=== PATIENT | male | born 1975 | race Caucasian/White ===

== ENCOUNTER 2024-03-23 11:35 | Emergency (ER) | payer OTHER ==
[~2024-03-23] VITALS: Ht 177.8 cm; Wt 2.0 kg
--- NOTE | 2024-03-23 13:18 | ED.PDOC ---
Musculoskeletal HPI Comments 48 year old male presents to the ED with chief complaint of bilateral leg wounds. Patient reports that he has been experiencing worsening bilateral leg wounds with associated drainage, redness, warmth, and pain for the past week along with fever and chills. Patient relays that he had similar symptoms 2-3 years ago, requiring admitted antibiotic treatment. Patient states that he had accidentally bumped both legs into things, causing a wound that got infected. Patient notes that he had his Tetanus updated last year and he had wrapped his wounds to keep them clean. Patient denies any numbness, weakness, bleeding, chest pain, or SOB. Chief Complaint: Wound Check Time Seen by MD: 13:15 Primary Care Provider: NONE Reviewed Notes: Nurses Notes, Medications, Allergies Allergies: Coded Allergies: NO KNOWN ALLERGIES (Unverified , 03/23/24) Information Source: Patient Mode of Arrival: Ambulatory Location: Bilateral Extremity Location: Leg Timing: Weeks Prehospital treatment: None Severity: Moderate Able to Move Extremity: Yes Bear Weight: Fully Pain: Moderate Mechanism: Metal Cut Circumstances: Preceding Wound Onset of Symptoms: Spontaneous Symptoms: Swelling, Pain, Erythema, Warmth DVT Risk Factors: NONE Past Medical History Past Medical History (Other): Cellulitis, Chronic back pain Surgical History: Appendectomy Family History Family History: Reviewed,noncontributory to illness Social History Smoker: Cigarettes Alcohol: Rarely Drugs: Denies Drug Use Lives In: Home Constitutional: denies: chills, diaphoresis, fatigue, fever, malaise, sweats, weakness, others EENTM: denies: blurred vision, double vision, ear bleeding, ear discharge, ear drainage, ear pain, ear ringing, eye pain, eye redness, hearing loss, mouth pain, mouth swelling, nasal discharge, nose bleeding, nose congestion, nose pain, photophobia, tearing, throat pain, throat swelling, voice changes, others Respiratory: denies: cough, hemoptysis, orthopnea, SOB at rest, shortness of breath, SOB with excertion, stridor, wheezing, others Cardiovascular: denies: chest pain, dizzy spells, diaphoresis, Dyspnea on exertion, edema, irregular heart beat, left arm pain, lightheadedness, palpitations, PND, syncope, others Gastrointestinal: denies: abdomen distended, abdominal pain, blood streaked bowels, constipated, diarrhea, dysphagia, difficulty swallowing, hematemesis, melena, nausea, poor appetite, poor fluid intake, rectal bleeding, rectal pain, vomiting, others Genitourinary: denies: burning, dysuria, flank pain, frequency, hematuria, incontinence, penile discharge, penile sore, pain, testicle pain, testicle swelling, urgency, others Neurological: denies: dizziness, fainting, headache, left sided numbness, left sided weakness, numbness, paresthesia, pre-existing deficit, right sided numbness, right sided weakness, seizure, speech problems, tingling, tremors, weakness, others Musculoskeletal: denies: back pain, gout, joint pain, joint swelling, muscle pain, muscle stiffness, neck pain, others Integumetry: reports: wounds (Bilateral shins with redness, swelling, and drai nage); denies: bruises, change in color, change in hair/nails, dryness, laceration, lesions, lumps, rash, others Allergic/Immunocompromised: denies: Difficulty Healing, Frequent Infections, Hives, Itching, others Endocrine: denies: excessive hunger, excessive sweating, excessive thirst, excessive urination, flushing, intolerance to cold, intolerance to heat, unexplained weight gain, unexplained weight loss, others Psychiatric: denies: anxiety, bipolar disorder, depression, hopeless, panic disorder, schizophrenia, sleepless, suicidal, others All Other Systems: Reviewed and Negative Physical Exam General Appearance: Mild Distress, Normal HEENT: Normal ENT Inspection, PERRL/EOMI Neck: Full Range of Motion, Non-Tender, Normal, Normal Inspection Respiratory: Chest Non-Tender, Lungs Clear, No Accessory Muscle Use, No Respiratory Distress, Normal Breath Sounds Cardiovascular: No Edema, No JVD, No Murmur, No Gallop, Normal Peripheral Pu lses, Regular Rate/Rhythm Breast Exam: Deferred Gastrointestinal: No Organomegaly, Non Tender, No Pulsatile Mass, Normal Bowel Sounds, Soft Genitalia: Deferred Pelvic: Deferred Rectal: Deferred Extremities: Inflammation, No calf tenderness, Normal capillary refill, Normal inspection, Normal range of motion, Swelling, Tender, Other (Patient with bilateral cellulitis which is recurrent) Musculoskeletal : Apperance: Normal Neurologic: Alert, 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 Was a procedure done?: No Differential Diagnosis EXT Differential Diagnosis: Cellulitis, Contusion, Septic X-Ray, Labs, Meds, VS Vital Signs Date Time Temp Pulse Resp B/P (MAP) Pulse Ox O2 Delivery O2 Flow Rate FiO2 03/23/24 13:59 20 97 Room Air 03/23/24 13:59 97.9 83 20 139/81 (100) 97 97.9 03/23/24 13:46 88 18 97 Room Air* 0 21 03/23/24 12:06 98.0 88 18 122/83 (96) 96 Lab Test 03/23/24 13:34 Range/Units White Blood Count 7.9 4.4-10.8 10^3/uL Red Blood Count 4.34 L 4.5-5.90 10^6/uL Hemoglobin 15.3 13.5-17.5 g/dL Hematocrit 44.0 41.0-53.0 % Mean Corpuscular Volume 101.4 H 80.0-100.0 fL Mean Corpuscular Hemoglobin 35.2 H 28.0-32.0 pg Mean Corpuscular Hemoglobin Concent 34.7 32.0-36.0 g/dL Red Cell Distribution Width 12.6 11.8-14.3 % Platelet Count 241 140-450 10^3/uL Mean Platelet Volume 8.5 6.9-10.8 fL Neutrophils (%) (Auto) 64.4 37.0-80.0 % Lymphocytes (%) (Auto) 21.1 10.0-50.0 % Monocytes (%) (Auto) 11.0 0.0-12.0 % Eosinophils (%) (Auto) 3.1 0.0-7.0 % Basophils (%) (Auto) 0.4 0.0-2.0 % Neutrophils # (Auto) 5.1 1.6-8.6 10 ^3/uL Lymphocytes # (Auto) 1.7 0.4-5.4 10 ^3/uL Monocytes # (Auto) 0.9 0-1.3 10 ^3/uL Eosinophils # (Auto) 0.2 0-0.8 10 ^3/uL Basophils # (Auto) 0 0-0.2 10 ^3/uL Nucleated Red Blood Cells 0.1 % Sodium Level 141 136-145 mmol/L Potassium Level 4.4 3.5-5.1 mmol/L Chloride Level 105 98-107 mmol/L Carbon Dioxide Level 31 20-31 mmol/L Anion Gap 5 5-15 Blood Urea Nitrogen 21 9-23 mg/dL Creatinine 1.02 0.700-1.30 mg/dL Glomerular Filtration Rate Calc 92 >90 mL/min BUN/Creatinine Ratio 20.6 H 10.0-20.0 Serum Glucose 89 74-106 mg/dL Calcium Level 9.7 8.7-10.4 mg/dL Current Medications Medications (Trade) Dose Ordered Sig/Yaw Route Start Time Stop Time Status Last Admin Sodium Chloride 500 ml @ 500 mls/hr Q1H ONCE IV 03/23/24 13:15 03/23/24 14:14 DC 03/23/24 13:33 Ceftriaxone Sodium 50 ml @ 100 mls/hr ONCE ONCE IV 03/23/24 13:15 03/23/24 13:44 DC 03/23/24 13:33 X-Ray, Labs, Meds, VS Comment Seen in the emergency department patient came in complaining of cellulitis to both legs with the chills and fever Patient had the same history sometimes ago and was admitted for three weeks because of the severity of the infection Patient has chronic back pain and had his appendix removed CBC is normal BNP negative Patient has been hydrated and medicated The wound has been cultured dressing was applied to both legs Patient will be discharged home you will need to be re-evaluated within two three days Time of 1ST Reevaluation: 14:15 Reevaluation 1ST: Unchanged Time of 2ND Reevaluation: 15:03 Reevaluation 2ND: Improved Consultation: PCP Patient Education/Counseling: Diagnosis, Treatment, Prognosis, Need For Follow Up Family Education/Counseling: Diagnosis, Treatment, Prognosis, Need For Follow Up, No Family Present Departure 1 Departure Time of Disposition: 15:05 Impression: Primary Impression: Bilateral cellulitis of lower leg Additional Impression: Chronic back pain Qualified Codes: M54.50 - Low back pain, unspecified; G89.29 - Other chronic pain Disposition: 01 HOME / SELF CARE / HOMELESS Condition: Fair Additional Instructions: Both leg clean and dry with peroxide apply Neosporin twice a day and follow up with your PCP Within 2-3 days you need to have follow up in the emergency department e-Prescriptions Ibuprofen (Ibuprofen) 600 Mg Tab 1 TAB PO TID for 10 Days, #30 TAB Prov: KUMAR CAMARGO MD 03/23/24 Cefdinir (Cefdinir) 300 Mg Cap 1 CAP PO BID for 10 Days, #20 CAP Prov: KUMAR CAMARGO MD 03/23/24 Bacitracin-Polymyxin B (Neosporin [id number] Unit/gm) 1 Oin Oin 1 OIN EX BID for 10 Days, #60 OIN Prov: KUMAR CAMARGO MD 03/23/24 Discharged With: Self Critical Care Note Critical Care Time?: No Stability Stability form required: No Heart Score Heart Score: Heart Score Response (Comments) Value History N/A 0 EKG N/A 0 Age 45-64 1 Risk Factors No known risk factors 0 Troponin N/A 0 Total 1 I personally scribed for KUMAR CAMARGO MD ([email or web address]) on 03/23/24 at 13:18. Electronically submitted by Domenico Hutton ([email or web address]). I personally scribed for KUMAR CAMARGO MD ([email or web address]) on 03/23/24 at 13:19. Electronically submitted by Domenico Hutton ([email or web address]). KUMAR CAMARGO MD Mar 23, 2024 13:18
[2024-03-23] MEDS: cefTRIAXone 1GM/50ML D5W 50 ML IV ONE (13:33)
[2024-03-23] MEDS: SODIUM CHLORIDE 0.9% 500 ML IV ONE (13:33)
[2024-03-23 13:46] VITALS: PULSE 88; RESP 18; O2SAT 97
[2024-03-23] MEDS: NEOMYCIN-BACITRACIN-POLYM 15GM TOP OINT TOP ONE (13:58)
[2024-03-23 14:00] LABS: Basophils # (auto) 0 10 ^3/uL (0-0.2); Hemoglobin 15.3 g/dL (13.5-17.5); Lymphocytes # (auto) 1.7 10 ^3/uL (0.4-5.4); Monocytes # (auto) 0.9 10 ^3/uL (0-1.3); Neutrophils # (auto) 5.1 10 ^3/uL (1.6-8.6); Red Cell Distribution Width 12.6 % (11.8-14.3)
[2024-03-23 14:03] LABS: Basophils % (auto) 0.4 % (0.0-2.0); Eosinophils # (auto) 0.2 10 ^3/uL (0-0.8); Eosinophils % (auto) 3.1 % (0.0-7.0); Lymphocytes % (auto) 21.1 % (10.0-50.0); Mean Corpuscular Hemoglobin 35.2 pg (28.0-32.0); Mean Corpuscular Hgb Conc. 34.7 g/dL (32.0-36.0); Mean Corpuscular Volume 101.4 fL (80.0-100.0); Neutrophils % (auto) 64.4 % (37.0-80.0); Nucleated Red Blood Cells % 0.1 %; Platelet Count (auto) 241 10^3/uL (140-450); Red Blood Cells 4.34 10^6/uL (4.5-5.90); White Blood Cell 7.9 10^3/uL (4.4-10.8)
[2024-03-23 14:04] LABS: Chloride 105 mmol/L (98-107); Potassium 4.4 mmol/L (3.5-5.1); Sodium 141 mmol/L (136-145)
[2024-03-23 14:05] LABS: Anion Gap 5 (5-15); Calcium 9.7 mg/dL (8.7-10.4); Carbon Dioxide 31 mmol/L (20-31)
[2024-03-23 14:10] LABS: BUN/Creatinine Ratio 20.6 (10.0-20.0); Blood Urea Nitrogen 21 mg/dL (9-23); Glucose 89 mg/dL (74-106)
[2024-03-23] MEDS ORDERED: IBUP-1454 PO (15:08)
[2024-03-23] MEDS ORDERED: CEFD300C2 PO (15:08)
[2024-03-23] MEDS ORDERED: BACI1OIN45 EX (15:08)
[2024-03-23 15:16] VITALS: BP 113/78; PULSE 88; RESP 16; TEMP 97.8; O2SAT 97
== END 2024-03-23 15:17 | disposition home or self-care (01) ==
LOC: ER 11:43
DX: L03.116 Cellulitis of left lower limb (principal); L03.115 Cellulitis of right lower limb; G89.29 Other chronic pain; M54.59 Other low back pain; F17.210 Nicotine dependence, cigarettes, uncomplicated; Z90.49 Acquired absence of other specified parts of digestive tract
CPT/HCPCS: 36415; 80048; 85025; 87077; 87186; 87205; 96365; 99284; J0696; J7040

== ENCOUNTER 2024-05-26 19:00 | Inpatient (IN) | payer OTHER ==
[~2024-05-26] VITALS: Ht 177.8 cm; Wt 76.8 kg
[~2024-05-26 19:00] MED LIST: BACI1OIN45 EX; CEFD300C2 PO; IBUP-1454 PO
--- NOTE | 2024-05-26 20:27 | ED.PDOC ---
History of Present Illness(SKN HPI Comments 48 y.o male presents to the ED for an evaluation of bilateral lower leg wounds to the anterior shins. Patient reports wounds have been present for years, has been giving multiple rounds of antibiotics with last dose routine being 2-3 months ago. Patient presents with dry scab wounds and erythema around. Patient complains of pain described as burning sensation, itchiness and SOB today. Patient denies any fever, chills, wound discharge or bleeding. Chief Complaint: Lower Extremity Time Seen by MD: 20:18 Primary Care Provider: NONE History of Present Illness: Nurses Notes, Medications, Allergies Allergies: Coded Allergies: NO KNOWN ALLERGIES (Unverified , 03/23/24) Home Meds Active Scripts Ibuprofen (Ibuprofen) 600 Mg Tab, 1 TAB PO TID for 10 Days, #30 TAB Prov:KUMAR CAMARGO MD 03/23/24 Cefdinir (Cefdinir) 300 Mg Cap, 1 CAP PO BID for 10 Days, #20 CAP Prov:KUMAR CAMARGO MD 03/23/24 Bacitracin-Polymyxin B (Neosporin [id number] Unit/gm) 1 Oin Oin, 1 OIN EX BID for 10 Days, #60 OIN Prov:KUMAR CAMARGO MD 03/23/24 Information Source: Patient Mode of Arrival: Ambulatory Severity: Moderate Timing: Came on: Gradually Duration: Since onset Location: Leg Mechanism: Preceding Wound Developed: Shortness of Breath Object: None Condition of Object: None Wound Type: Other History of: None Associated Signs and Symptoms: Redness, Swelling, Pain Past Medical History PAST MEDICAL HISTORY: Seizures Surgical History: Appendectomy, Denies all surgeries Family History Family History: Reviewed,noncontributory to illness Social History Smoker: Cigarettes Alcohol: Rarely Drugs: Denies Drug Use Lives In: Home Constitutional: denies: chills, diaphoresis, fatigue, fever, malaise, sweats, weakness, others EENTM: denies: blurred vision, double vision, ear bleeding, ear discharge, ear drainage, ear pain, ear ringing, eye pain, eye redness, hearing loss, mouth pain, mouth swelling, nasal discharge, nose bleeding, nose congestion, nose pain, photophobia, tearing, throat pain, throat swelling, voice changes, others Respiratory: reports: shortness of breath; denies: cough, hemoptysis, orthopnea, SOB at rest, SOB with excertion, stridor, wheezing, others Cardiovascular: denies: chest pain, dizzy spells, diaphoresis, Dyspnea on exertion, edema, irregular heart beat, left arm pain, lightheadedness, palpitations, PND, syncope, others Gastrointestinal: denies: abdomen distended, abdominal pain, blood streaked bowels, constipated, diarrhea, dysphagia, difficulty swallowing, hematemesis, melena, nausea, poor appetite, poor fluid intake, rectal bleeding, rectal pain, vomiting, others Genitourinary: denies: burning, dysuria, flank pain, frequency, hematuria, incontinence, penile discharge, penile sore, pain, testicle pain, testicle swelling, urgency, others Neurological: denies: dizziness, fainting, headache, left sided numbness, left sided weakness, numbness, paresthesia, pre-existing deficit, right sided numbness, right sided weakness, seizure, speech problems, tingling, tremors, weakness, others Musculoskeletal: denies: back pain, gout, joint pain, joint swelling, muscle pain, muscle stiffness, neck pain, others Integumetry: reports: wounds (Bilateral lower leg wounds ); denies: bruises, change in color, change in hair/nails, dryness, laceration, lesions, lumps, rash, others Allergic/Immunocompromised: denies: Difficulty Healing, Frequent Infections, Hives, Itching, others Hematologic/Lymphatic: denies: anemia, blood clots, easy bleeding, easy bruising, swollen glands, others Endocrine: denies: excessive hunger, excessive sweating, excessive thirst, excessive urination, flushing, intolerance to cold, intolerance to heat, unexplained weight gain, unexplained weight loss, others Psychiatric: denies: anxiety, bipolar disorder, depression, hopeless, panic disorder, schizophrenia, sleepless, suicidal, others All Other Systems: Reviewed and Negative Physical Exam General Appearance: No Apparent Distress, Normal HEENT: Normal ENT Inspection, Pharynx Normal, TMs Normal Neck: Full Range of Motion, Non-Tender, Normal, Normal Inspection Respiratory: Chest Non-Tender, Lungs Clear, No Accessory Muscle Use, No Respiratory Distress, Normal Breath Sounds Cardiovascular: No Edema, No JVD, No Murmur, No Gallop, Normal Peripheral Pulses, Regular Rate/Rhythm Breast Exam: Deferred Gastrointestinal: No Organomegaly, Non Tender, No Pulsatile Mass, Normal Bowel Sounds, Soft Genitalia: Deferred Pelvic: Deferred Rectal: Deferred Extremities: No calf tenderness, Normal capillary refill, Normal inspection, Normal range of motion, Non-tender, No pedal edema Musculoskeletal : Apperance: Normal Neurologic: Alert, 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 ) Lymphatic: No Adenopathy Was a procedure done? Was a procedure done?: No Differential Diagnosis (INTG) Differential Diagnosis: Cellulitis, Contact Dermatitis, Osteomyelitis X-Ray, Labs, Meds, VS Vital Signs Date Time Temp Pulse Resp B/P (MAP) Pulse Ox O2 Delivery O2 Flow Rate FiO2 05/26/24 21:23 95 20 95 Room Air* 0 21 05/26/24 20:56 98.5 91 20 144/89 (107) 95 98.5 05/26/24 19:20 98.3 107 20 129/85 (100) 96 98.3 Lab Test 05/26/24 20:38 Range/Units White Blood Count 5.1 4.4-10.8 10^3/uL Red Blood Count 4.28 L 4.5-5.90 10^6/uL Hemoglobin 15.2 13.5-17.5 g/dL Hematocrit 42.0 41.0-53.0 % Mean Corpuscular Volume 98.0 80.0-100.0 fL Mean Corpuscular Hemoglobin 35.5 H 28.0-32.0 pg Mean Corpuscular Hemoglobin Concent 36.2 H 32.0-36.0 g/dL Red Cell Distribution Width 12.9 11.8-14.3 % Platelet Count 230 140-450 10^3/uL Mean Platelet Volume 8.0 6.9-10.8 fL Neutrophils (%) (Auto) 47.6 37.0-80.0 % Lymphocytes (%) (Auto) 36.7 10.0-50.0 % Monocytes (%) (Auto) 11.0 0.0-12.0 % Eosinophils (%) (Auto) 3.8 0.0-7.0 % Basophils (%) (Auto) 0.9 0.0-2.0 % Neutrophils # (Auto) 2.4 1.6-8.6 10 ^3/uL Lymphocytes # (Auto) 1.9 0.4-5.4 10 ^3/uL Monocytes # (Auto) 0.6 0-1.3 10 ^3/uL Eosinophils # (Auto) 0.2 0-0.8 10 ^3/uL Basophils # (Auto) 0 0-0.2 10 ^3/uL Nucleated Red Blood Cells 0.0 % Sodium Level 143 136-145 mmol/L Potassium Level 4.1 3.5-5.1 mmol/L Chloride Level 107 98-107 mmol/L Carbon Dioxide Level 31 20-31 mmol/L Anion Gap 5 5-15 Blood Urea Nitrogen 11 9-23 mg/dL Creatinine 1.09 0.700-1.30 mg/dL Glomerular Filtration Rate Calc 85 >90 mL/min BUN/Creatinine Ratio 10.1 10.0-20.0 Serum Glucose 80 74-106 mg/dL Lactic Acid Level 1.6 0.4-2.0 mmol/L Calcium Level 9.7 8.7-10.4 mg/dL Total Bilirubin 1.0 0.2-1.0 mg/dL Aspartate Amino Transferase (AST) 22 13-40 U/L Alanine Aminotransferase (ALT) 15 7-40 U/L Alkaline Phosphatase 89 46-116 U/L Total Protein 7.1 5.7-8.2 g/dL Albumin 4.6 3.2-4.8 g/dL Current Medications Medications (Trade) Dose Ordered Sig/Yaw Route Start Time Stop Time Status Last Admin Cefazolin Sodium 50 ml @ 100 mls/hr ONCE ONCE IV 05/26/24 20:30 05/26/24 20:59 DC 05/26/24 21:17 Ketorolac Tromethamine (Toradol Injection) 30 mg ONCE ONCE IV 05/26/24 20:30 05/26/24 20:31 DC 05/26/24 21:16 X-Ray, Labs, Meds, VS Comment Patient will be admitted for IV antibiotics for nonhealing cellulitis Concerns of possible homelessness and medical noncompliance Patient was given Ancef 1 g Time of 1ST Reevaluation: 20:22 Reevaluation 1ST: Unchanged Patient Education/Counseling: Diagnosis, Treatment, Prognosis Family Education/Counseling: No Family Present Departure 1 Departure Time of Disposition: 22:51 Impression: Primary Impression: Bilateral cellulitis of lower leg Disposition: ADMITTED INPATIENT Condition: Fair Critical Care Note Critical Care Time?: No Stability Stability form required: No I personally scribed for MILENA ARIAS ([email or web address]) on 05/26/24 at 20:27. Electronically submitted by Mony Matute ([facility]). MILENA ARIAS May 26, 2024 20:27
[2024-05-26 20:49] LABS: Basophils # (auto) 0 10 ^3/uL (0-0.2); Basophils % (auto) 0.9 % (0.0-2.0); Eosinophils # (auto) 0.2 10 ^3/uL (0-0.8); Eosinophils % (auto) 3.8 % (0.0-7.0); Hemoglobin 15.2 g/dL (13.5-17.5); Lymphocytes # (auto) 1.9 10 ^3/uL (0.4-5.4); Lymphocytes % (auto) 36.7 % (10.0-50.0); Mean Corpuscular Hemoglobin 35.5 pg (28.0-32.0); Mean Corpuscular Hgb Conc. 36.2 g/dL (32.0-36.0); Monocytes # (auto) 0.6 10 ^3/uL (0-1.3); Neutrophils # (auto) 2.4 10 ^3/uL (1.6-8.6); Neutrophils % (auto) 47.6 % (37.0-80.0); Platelet Count (auto) 230 10^3/uL (140-450); Red Blood Cells 4.28 10^6/uL (4.5-5.90); Red Cell Distribution Width 12.9 % (11.8-14.3); White Blood Cell 5.1 10^3/uL (4.4-10.8)
[2024-05-26 21:09] LABS: Alanine Aminotransferase 15 U/L (7-40); Albumin 4.6 g/dL (3.2-4.8); Alkaline Phosphatase 89 U/L (46-116); Anion Gap 5 (5-15); Aspartate Aminotransferase 22 U/L (13-40); BUN/Creatinine Ratio 10.1 (10.0-20.0); Blood Urea Nitrogen 11 mg/dL (9-23); Calcium 9.7 mg/dL (8.7-10.4); Glucose 80 mg/dL (74-106); Potassium 4.1 mmol/L (3.5-5.1); Sodium 143 mmol/L (136-145); Total Protein 7.1 g/dL (5.7-8.2)
[2024-05-26 21:11] LABS: Carbon Dioxide 31 mmol/L (20-31); Chloride 107 mmol/L (98-107)
[2024-05-26] MEDS: KETOROLAC TROMETH 30 MG/ML 1ML VIAL IV ONE (21:16)
[2024-05-26] MEDS: ceFAZolin 1GM/50ML 50 ML IV ONE (21:17)
[2024-05-26 21:23] VITALS: PULSE 95; RESP 20; O2SAT 95
[2024-05-27] VITALS (9 sets, daily range): BP systolic 120–150; BP diastolic 84–89; PULSE 63–83; RESP 16–19; TEMP 97.4–98.8; O2SAT 94–98
[2024-05-27] MEDS ORDERED: LORazepam 2MG/ML-1ML VIAL IV PRN (02:30)
[2024-05-27] MEDS ORDERED: ONDANSETRON HCL 4 MG/2 ML VIAL IV PRN (02:30)
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
[2024-05-27 03:05] LABS: Basophils # (auto) 0 10 ^3/uL (0-0.2); Eosinophils # (auto) 0.2 10 ^3/uL (0-0.8); Monocytes # (auto) 0.4 10 ^3/uL (0-1.3); White Blood Cell 3.9 10^3/uL (4.4-10.8)
[2024-05-27 03:07] LABS: Basophils % (auto) 0.8 % (0.0-2.0); Hematocrit 40.3 % (41.0-53.0); Hemoglobin 14.4 g/dL (13.5-17.5); Lymphocytes # (auto) 1.9 10 ^3/uL (0.4-5.4); Lymphocytes % (auto) 49.2 % (10.0-50.0); Mean Corpuscular Hemoglobin 35.1 pg (28.0-32.0); Mean Corpuscular Hgb Conc. 35.6 g/dL (32.0-36.0); Mean Corpuscular Volume 98.5 fL (80.0-100.0); Monocytes % (auto) 10.3 % (0.0-12.0); Neutrophils # (auto) 1.4 10 ^3/uL (1.6-8.6); Neutrophils % (auto) 34.7 % (37.0-80.0); Platelet Count (auto) 211 10^3/uL (140-450); Red Blood Cells 4.09 10^6/uL (4.5-5.90); Red Cell Distribution Width 12.9 % (11.8-14.3)
[2024-05-27] MEDS: SODIUM CHLORIDE 0.9% 1,000 ML IV SCH (03:07)
[2024-05-27 03:08] LABS: Anion Gap 6 (5-15); Carbon Dioxide 26 mmol/L (20-31); Sodium 140 mmol/L (136-145)
[2024-05-27 03:09] LABS: Calcium 9.1 mg/dL (8.7-10.4)
[2024-05-27] MEDS: PIPERACILLIN-TAZOB 3.375GM 100 ML IV ONE (03:09)
[2024-05-27 03:14] LABS: Blood Urea Nitrogen 16 mg/dL (9-23); Glucose 105 mg/dL (74-106)
[2024-05-27 03:16] LABS: Phosphorus 3.5 mg/dL (2.4-5.1)
[2024-05-27 03:30] LABS: INR 0.96 (0.9-1.15); Partial Thromboplastin Time 32.5 SEC (24.5-34.5); Prothrombin Time 10.2 sec (9.3-11.8)
[2024-05-27 03:35] LABS: Chloride 108 mmol/L (98-107)
[2024-05-27 03:48] LABS: Triglycerides 52 mg/dL (< 150)
[2024-05-27 03:49] LABS: LDL Cholesterol 66 mg/dL (< 100)
[2024-05-27 03:50] LABS: Cholesterol 118 mg/dL (< 200); HDL Cholesterol 41 mg/dL (40-59)
--- NOTE | 2024-05-27 04:38 | DVH ---
CLINICAL INDICATION: 48 years old, Male; Rule out osteomyelitis. TECHNIQUE: Noncontrast CT of the bilateral lower extremities was performed. Sagittal and coronal refo rmatted images are provided. COMPARISON: None CT Dose: CTDI volume is 9.31 mGy. Dose-length product is 1028.1 mGy*cm FINDINGS: No fracture or dislocation. No cortical destruction or erosions. Soft tissue swelling in th e feet. No obvious fluid collection. IMPRESSION: 1. No CT evidence of osteomyelitis. 2. Soft tissue swelling in the bilateral feet, nonspecific. All CT scans at this medical facility are performed using dose modulation techniques as appropriate t o a performed exam including the following: Automated exposure control was utilized; adjustment of th e MA and/or KV according to patient size; and use of iterative reconstruction technique.
[2024-05-27] MEDS: BUPRENORPHINE -NALOXONE 2-0.5mg SL TAB SL PRN (04:49)
[2024-05-27] MEDS ORDERED: METHADONE HCL 10 MG TAB PO SCH (06:00)
[2024-05-27] MEDS ORDERED: cloNIDine HCL 0.1 MG TAB PO PRN (09:15)
[2024-05-27] MEDS: PIPERACILLIN-TAZOB 3.375GM 100 ML IV SCH (10:07)
[2024-05-27] MEDS: ENOXAPARIN SOD 40 MG/0.4 ML SYRINGE SC SCH (10:08)
--- NOTE | 2024-05-27 11:35 | DVH ---
BILATERAL LOWER EXTREMITY VENOUS DOPPLER CLINICAL HISTORY: Limb swelling Technique: Duplex Doppler evaluation of the deep venous systems of both lower extremities from the co mmon femoral veins to the popliteal veins including color Doppler and spectral/pulsed waveform analys is was performed. COMPARISON: None FINDINGS: The right and left common femoral, superficial femoral, popliteal, posterior tibial veins and trifur cations appear patent with normal augmentation, phasicity, compressibility and color-flow. IMPRESSION: 1. There is no sonographic evidence for DVT in the lower extremities. HS:Y
--- NOTE | 2024-05-27 11:48 | DVH ---
Bilateral Lower Extremity Arterial Duplex Date: 05/27/2024 10:49 AM Clinical History: Rule Out PAD Comparison: None Findings: Duplex Doppler evaluation including color Doppler and spectral/pulsed waveform analysis of the lower extremity arteries was performed. Velocities and waveforms within normal limits REFERENCE VALUES, [facility]) vascular Imaging Lab Criteria: Peak systolic velocity ranges (in cm/sec) are as follows: <150 cm/s - <20 % stenosis 150-200 cm/s - 20-49% stenosis 200-300 cm/s - 50-75% stenosis >300 cm/s -> 75% stenosis IMPRESSION: There is no evidence for peripheral vascular insufficiency in the right lower extremity. There is no evidence for peripheral vascular insufficiency in the left lower extremity. No significant focal stenosis is identified. END IMPRESSION:
[2024-05-27] MEDS: IOHEXOL 350 MG/ML 100ML IJ ONE (12:47)
--- NOTE | 2024-05-27 14:41 | DVH ---
Examination: CT CT ANGIO ABD AORTA W RUN OFF CLINICAL HISTORY: asses vascular patency Comparison: None Technique: Using helical technique, CT data from the abdomen through the toes was obtained during ra pid IV contrast infusion of 100 cc Omni 350. The examination was timed to the arterial system to gene rate a CT angiographic study. 3D images were generated at an independent work station. Dose reduction techniques included automated exposure control. Radiation Dose Information: CT Dose: CTDI volume is 7.4 mGy. Dose-length product is 981.12 mGy*cm Findings: Abdominal aorta: Normal caliber, patent ENRIQUE: Patent Right lower extremity: Common iliac artery: Patent External iliac artery: Patent Internal iliac artery: Patent Common femoral artery: Patent Profunda femoral artery: Patent Superficial femoral artery: Patent Popliteal artery: Patent Anterior tibial artery: Patent Peroneal tibial trunk: Patent Peroneal artery: Patent Posterior tibial artery: Patent Dorsalis pedis artery: Patent Left lower extremity: Common iliac artery: Patent External iliac artery: Patent Internal iliac artery: Patent Common femoral artery: Patent Profunda femoral artery: Patent Superficial femoral artery: Patent Popliteal artery: Patent Anterior tibial artery: Patent Peroneal tibial trunk: Patent Peroneal artery: Patent Posterior tibial artery: Patent Dorsalis pedis artery: Patent Abdomen/Pelvis: Liver: Visualized liver appears unremarkable. Biliary System: Gallbladder: Normal Spleen: Visualized spleen appears unremarkable Pancreas: Visualized pancreas appears unremarkable. Urinary System: Kidneys and Ureters: Visualized kidneys appear unremarkable. Bladder: Normal. GI System: Visualized bowel appears unremarkable. Appendix is not identified. Lymph nodes: Mildly prominent inguinal lymph nodes noted. Peritoneal cavity and surface: No free fluid. No pneumoperitoneum. Soft Tissues: Normal. Reproductive Organs: Normal. Bones: No acute fracture or aggressive osseous lesion. Impression: Vascular: 1. No evidence of vascular disease. Right Lower Extremity: 1. Patent inflow 2. Patent outflow 3. Patent 3 vessel runoff Left Lower Extremity: 1. Patent inflow 2. Patent outflow 3. Patent 3 vessel runoff Abdomen/Pelvis: 1. No acute abdominal pelvic process. HS:Y
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
[2024-05-27 19:04] LABS: Urine Bacteria None Seen /hpf (None Seen)
[2024-05-27 19:24] LABS: Urine Blood Negative /uL (Negative); Urine Clarity Clear (Clear); Urine Color Light-Yellow (Yellow); Urine Protein, UAD Negative (Negative); Urine Specific Gravity 1.049 (1.001-1.035); Urine Squamous Epithelial Cell FEW /hpf (<5); Urine Urobilinogen Normal (Negative); Urine WBC < 1 /HPF (0-3); Urine pH 6.5 (5.0-9.0)
[2024-05-27 19:36] LABS: Cannabinoid Screen, Urine Pos (NEGATIVE)
[2024-05-27 19:37] LABS: Amphetamine Screen, Urine Pos (NEGATIVE); Barbiturate Scree,Urine Neg (NEGATIVE); Benzodiazephine Screen, Urine Neg (NEGATIVE); Cocaine Screen, Urine Neg (NEGATIVE); Opiate Scree,Urine Neg (NEGATIVE); Phencyclidine Screen, Urine Neg (NEGATIVE)
[2024-05-27] MEDS: PANTOPRAZOLE 40 MG/10 ML VIAL INJ IV ONE (21:44)
[2024-05-27] MEDS: KETOROLAC TROMETH 30 MG/ML 1ML VIAL IV ONE (21:45)
[2024-05-27] MEDS: hydrOXYzine HCL 10 MG TAB PO PRN (22:16)
[2024-05-28 06:25] LABS: Basophils # (auto) 0 10 ^3/uL (0-0.2); Eosinophils # (auto) 0.3 10 ^3/uL (0-0.8); Monocytes # (auto) 0.4 10 ^3/uL (0-1.3); White Blood Cell 4.9 10^3/uL (4.4-10.8)
[2024-05-28 06:29] LABS: Basophils % (auto) 0.5 % (0.0-2.0); Eosinophils % (auto) 5.6 % (0.0-7.0); Hematocrit 40.2 % (41.0-53.0); Hemoglobin 14.5 g/dL (13.5-17.5); Lymphocytes # (auto) 2.6 10 ^3/uL (0.4-5.4); Lymphocytes % (auto) 51.8 % (10.0-50.0); Mean Corpuscular Hemoglobin 35.3 pg (28.0-32.0); Mean Corpuscular Volume 98.3 fL (80.0-100.0); Monocytes % (auto) 7.6 % (0.0-12.0); Neutrophils # (auto) 1.7 10 ^3/uL (1.6-8.6); Neutrophils % (auto) 34.5 % (37.0-80.0); Nucleated Red Blood Cells % 0.1 %; Platelet Count (auto) 195 10^3/uL (140-450); Red Blood Cells 4.09 10^6/uL (4.5-5.90); Red Cell Distribution Width 12.9 % (11.8-14.3)
[2024-05-28 06:40] LABS: Anion Gap 6 (5-15); Carbon Dioxide 26 mmol/L (20-31); Potassium 4.2 mmol/L (3.5-5.1); Sodium 140 mmol/L (136-145)
[2024-05-28 06:42] LABS: Calcium 9.2 mg/dL (8.7-10.4)
[2024-05-28 06:46] LABS: Blood Urea Nitrogen 14 mg/dL (9-23); Glucose 93 mg/dL (74-106)
[2024-05-28 06:50] LABS: Chloride 108 mmol/L (98-107)
[2024-05-28 08:15] VITALS: PULSE 65; RESP 16; O2SAT 95
[2024-05-28 09:00] VITALS: BP 90/74; PULSE 65; RESP 16; TEMP 98.7; O2SAT 95
--- NOTE | 2024-05-28 09:13 | DVH ---
XY CHEST TWO VIEWS ROUTINE CLINICAL HISTORY: SOB COMPARISON: None TECHNIQUE: Frontal and lateral view of the chest was obtained FINDINGS: Lines and Tubes: None Lungs: No focal consolidation. Pleura: No effusion. No pneumothorax. Cardiomediastinal contours: Unremarkable Bones: No acute osseous abnormality. IMPRESSION: 1. No acute cardiopulmonary disease.
[2024-05-28 12:41] VITALS: BP 135/94; PULSE 77; RESP 19; TEMP 98.7; O2SAT 97
[2024-05-28] MEDS ORDERED: cloNIDine HCL 0.1 MG TAB PO PRN (14:45)
[2024-05-28] MEDS: cefTRIAXone 1GM/50ML D5W 50 ML IV ONE (16:37)
[2024-05-28 17:00] VITALS: BP 133/95; PULSE 70; RESP 16; TEMP 97.9; O2SAT 98
[2024-05-28] MEDS ORDERED: KETOROLAC TROMETH 30 MG/ML 1ML VIAL IV ONE (17:45)
--- NOTE | 2024-05-28 17:53 | DVHPNRES ---
Progress Note Date Seen: May 28, 2024 Resident Creating Document: GIOVANNY NORTON RESIDENT Has the PT tested + for MRSA If YES, has PT been informed?: No Medical Necessity Reason Pt with a Central, PICC or Fol: No Medical Necessity Reason Patient is a 48-year-old male patient who presented to the ED with chief complaint of nonhealing lower limb bilateral wounds, which have been present for the past five years, but in the past three days have increased in pain, pruritus, and erythema which was exacerbated after traumatic injury, associated also with chills and dyspnea in variable functional class. Denies palpitation, syncope, chest pain, nausea, vomiting, diarrhea, bleeding, sick contacts, recent travel and motor or sensory deficits. Surgical history: Appendectomy Family history: Mother had heart disease and emphysema Social history: Lives in [place] alone in a cabin. Current smoker (approximate 15 pack-year history of smoking) occasional marijuana and alcohol. Abuses fentanyl and methamphetamine. Denies any other drug abuse Allergies: Denies Home medication: Denies PN 05/28/2024 Patient is seen and examined today at the bedside. He has no distress.The swelling is reducing in size and scab is also getting smaller. Complaints of intense burning pruritus around the wound and asking for pain medications. Notes patient UDS came back positive for fentanyl, amphetamine and marijuana. Angio aorta run off showed No acute abdominal pelvic process.Wound culture grew Beta-Hemolytic Group A Streptococcus sensitive to ceftriaxone. Subjective Review of Systems Constitutional: Denies fever no chills no feeling of malaise, mild distress HEENT: Denies headache, ear pain, ear discharges, conjunctivitis, nasal discharge throat pain Cardiovascular: Denies chest pain, palpitation, orthopnea, PND, or pedal edema Respiratory: Denies shortness of breath, cough cough, sputum production, hemoptysis, GI: Denies abdominal pain, nausea, vomiting, diarrhea, hematemesis, hematochezia, : Denies frequency, urgency, hematuria, Endocrine: Denies unintentional weight gain or weight loss, feeling of hot flashes, Mario: Denies easy bruising, bleeding disorders, epistaxis Musculoskeletal/skin: erythema and pruritis lower extremities, scab is decreasing size Psych: No evidence of depression, kem, suicidal ideation Objective vital signs Vital Sign Date Time Temp Pulse Resp B/P (MAP) Pulse Ox O2 Delivery O2 Flow Rate FiO2 05/28/24 17:00 97.9 70 16 133/95 (108) 98 97.9 05/28/24 08:15 Room Air* 0 21 Total Intake and Output 05/27/24 05/27/24 05/28/24 15:00 23:00 07:00 Intake Total 100 ml 870 ml 1100 ml Balance 100 ml 870 ml 1100 ml medications Current Medications Medications Dose Ordered Sig/Yaw Route Start Time Stop Time Status Last Admin Dose Admin Ondansetron HCl 4 mg Q4HP PRN IV 05/27/24 02:30 Enoxaparin Sodium 40 mg DAILY SC 05/27/24 10:00 05/28/24 10:13 40 MG Sodium Chloride 1,000 ml @ 75 mls/hr [id number] IV 05/27/24 02:30 05/28/24 17:34 75 MLS/HR Lorazepam 1 mg Q5MINP PRN IV 05/27/24 02:30 Hydroxyzine HCl 10 mg Q6HP PRN PO 05/27/24 09:15 05/28/24 16:50 10 MG Clonidine HCl 0.1 mg Q6HPRN PRN PO 05/28/24 14:45 Ceftriaxone Sodium 50 ml @ 100 mls/hr DAILY@09 IV 05/29/24 09:00 Examination General Appearance: Alert, Oriented X3, Cooperative, unkempt HEENT: Atraumatic, PERRLA, EOMI, Mucous membrane moist/pink, poor oral hygiene Respiratory: Clear to auscultation, Normal air movement Cardiovascular: Regular rate, Normal S1, Normal S2, No murmurs, no chest wall tenderness Abdominal: NO distention, no tenderness, bowel sounds present, no scars noted MSK/Skin: Skin is dry and warm. Presents dry bilateral lower limb wounds associated with erythema ( Improved). No evidence of discharge at the moment of examination. Neuro: Normal gait, Normal speech, Strength at 5/5 X4 ext, Normal tone, Sensation intact, Cranial nerves 3-12 NL, Reflexes 2+ Psych/Mental Status: Mental status NL, Mood NL laboratory and microbiology Laboratory Tests 05/28/24 05:05 Test 05/28/24 05:05 Range/Units Serum Glucose 93 74-106 mg/dL Microbiology Date/Time Source Procedure Growth Status 05/27/24 03:01 Leg Gram Stain - Final Resulted 05/27/24 03:01 Wound Culture - Preliminary Streptococcus Group A Resulted 05/27/24 02:42 Blood Blood Culture - Preliminary NO GROWTH AFTER 24 HOURS OF INCUBATION. Resulted Problem List/Assessment/Plan Problem List/Assessment/Plan Assessment Cellulitis bilateral --> Chronic nonhealing bilateral lower limb wounds --> Wound culture grew strep group A --> Switch antibiotic to Ceftriaxone daily --> Toradol for pain control --> wound consult on board --> Podiatry on board Osteomyelitis ruled out --> No CT evidence of osteomyelitis. Peripheral artery disease and DVT ruled out --> complained for pain upon long distance walk --> Angio aorta with run off : No acute abdominal pelvic process. History of seizures --> Ativan p.r.n. due to history of seizures Polysubstance abuse (tobacco, marijuana, ethanol, methamphetamine and fentanyl) --> Monitor opiate withdrawal --> Strongly counseled against polysubstance use Care discussed for more than 20 minutes: Full code Case and plan discussed with Dr. Osman Plan discussed with: Patient My Orders My Orders Orders - GIOVANNY NORTON RESIDENT Procedure Category Date Status Time Communication Order ORDERS 05/27/24 Transmitted 18:07 Ceftriaxone 1gm/50ml PHA 05/29/24 In Process D5w (Rocephin) 09:00 * Surgical Consult CONS 05/28/24 Transmitted 16:03 Ketorolac Injection PHA 05/28/24 Verified (Toradol Injection) 17:45 Date of Service: May 28, 2024 Billing Provider: ROC OSMAN MD Common Visit Codes: [id number] INP/OBS CARE(HIGH) GIOVANNY NORTON May 28, 2024 17:53 ROC OSMAN MD Jun 04, 2024 21:10
[2024-05-28 20:00] VITALS: PULSE 81; RESP 17; O2SAT 95
[2024-05-28 21:00] VITALS: BP 129/92; PULSE 81; RESP 17; TEMP 98.5; O2SAT 95
[2024-05-28] MEDS: KETOROLAC TROMETH 30 MG/ML 1ML VIAL IV ONE (22:44)
[2024-05-29 01:00] VITALS: BP 127/79; PULSE 73; RESP 18; TEMP 98.4; O2SAT 96
[2024-05-29 05:00] VITALS: BP 129/80; PULSE 73; RESP 17; TEMP 98.1; O2SAT 96
[2024-05-29 09:00] VITALS: BP 135/96; PULSE 77; RESP 18; TEMP 98.4; O2SAT 96
[2024-05-29] MEDS: cefTRIAXone 1GM/50ML D5W 50 ML IV SCH (09:01)
[2024-05-29 10:08] LABS: Basophils # (auto) 0 10 ^3/uL (0-0.2); Eosinophils # (auto) 0.2 10 ^3/uL (0-0.8); Monocytes # (auto) 0.4 10 ^3/uL (0-1.3); Monocytes % (auto) 5.4 % (0.0-12.0)
[2024-05-29 10:09] LABS: Potassium 4.2 mmol/L (3.5-5.1); Sodium 140 mmol/L (136-145)
[2024-05-29 10:10] LABS: Anion Gap 6 (5-15); Calcium 9.9 mg/dL (8.7-10.4); Carbon Dioxide 27 mmol/L (20-31)
[2024-05-29 10:12] LABS: Basophils % (auto) 0.4 % (0.0-2.0); Eosinophils % (auto) 3.2 % (0.0-7.0); Hematocrit 46.2 % (41.0-53.0); Hemoglobin 16.2 g/dL (13.5-17.5); Lymphocytes # (auto) 1.7 10 ^3/uL (0.4-5.4); Lymphocytes % (auto) 24.3 % (10.0-50.0); Mean Corpuscular Hemoglobin 34.2 pg (28.0-32.0); Mean Corpuscular Volume 97.8 fL (80.0-100.0); Neutrophils # (auto) 4.7 10 ^3/uL (1.6-8.6); Neutrophils % (auto) 66.7 % (37.0-80.0); Nucleated Red Blood Cells % 0.2 %; Platelet Count (auto) 247 10^3/uL (140-450); Red Blood Cells 4.72 10^6/uL (4.5-5.90); Red Cell Distribution Width 12.6 % (11.8-14.3); White Blood Cell 7.1 10^3/uL (4.4-10.8)
[2024-05-29 10:15] LABS: BUN/Creatinine Ratio 20.2 (10.0-20.0); Blood Urea Nitrogen 18 mg/dL (9-23); Glucose 88 mg/dL (74-106)
[2024-05-29 10:42] LABS: Chloride 107 mmol/L (98-107)
--- NOTE | 2024-05-29 11:45 | DVHDSRES ---
Discharge Summary Date of Admission Resident Creating Document: GIOVANNY NORTON May 27, 2024 at 02:20 Date of Discharge: May 29, 2024 Admitting Diagnosis bilateral leg pains Labs/Diagnostic Data: PATIENT: BRITTANY MERCEDES ACCT: [id number] UNIT: [id number] : 1975 LOC: [facility] ROOM / BED: [address] [place] [address] AGE / SEX: 48 / M ADM STATUS: ADM IN SERVICE 0400 ORDERING PHYSICIAN: JEN MILES PROCEDURE(s): CXR2 - CHEST TWO VIEWS ROUTINE REASON: SOB ORDER NUMBER(s): [id number], ACCESSION NUMBER(s): [id number] CHEST TWO VIEWS ROUTINE CLINICAL HISTORY: SOB COMPARISON: None TECHNIQUE: Frontal and lateral view of the chest was obtained FINDINGS: Lines and Tubes: None Lungs: No focal consolidation. Pleura: No effusion. No pneumothorax. Cardiomediastinal contours: Unremarkable Bones: No acute osseous abnormality. IMPRESSION: 1. No acute cardiopulmonary disease. ATED BY: SCOTT BANKS MD DICTATED DATE/TIME: 05/28/24 0911 PATIENT: BRITTANY MERCEDES ACCT: [id number] UNIT: [id number] : 1975 LOC: [facility] ROOM / BED: [address] [place] [address] AGE / SEX: 48 / M ADM STATUS: ADM IN SERVICE 1211 ORDERING PHYSICIAN: GIOVANNY NORTON PROCEDURE(s): CTAAA - CT ANGIO ABD AORTA W RUN OFF REASON: asses vascular patency ORDER NUMBER(s): [id number], ACCESSION NUMBER(s): [id number] Examination: CT CT ANGIO ABD AORTA W RUN OFF CLINICAL HISTORY: asses vascular patency Comparison: None Technique: Using helical technique, CT data from the abdomen through the toes was obtained during rapid IV contrast infusion of 100 cc Omni 350. The examination was timed to the arterial system to generate a CT angiographic study. 3D images were generated at an independent work station. Dose reduction techniques included automated exposure control. Radiation Dose Information: CT Dose: CTDI volume is 7.4 mGy. Dose-length product is 981.12 mGy*cm Findings: Abdominal aorta: Normal caliber, patent ENRIQUE: Patent Right lower extremity: Common iliac artery: Patent External iliac artery: Patent Internal iliac artery: Patent Common femoral artery: Patent Profunda femoral artery: Patent Superficial femoral artery: Patent Popliteal artery: Patent Anterior tibial artery: Patent Peroneal tibial trunk: Patent Peroneal artery: Patent Posterior tibial artery: Patent Dorsalis pedis artery: Patent Left lower extremity: Common iliac artery: Patent External iliac artery: Patent Internal iliac artery: Patent Common femoral artery: Patent Profunda femoral artery: Patent Superficial femoral artery: Patent Popliteal artery: Patent Anterior tibial artery: Patent Peroneal tibial trunk: Patent Peroneal artery: Patent Posterior tibial artery: Patent Dorsalis pedis artery: Patent Abdomen/Pelvis: Liver: Visualized liver appears unremarkable. Biliary System: Gallbladder: Normal Spleen: Visualized spleen appears unremarkable Pancreas: Visualized pancreas appears unremarkable. Urinary System: Kidneys and Ureters: Visualized kidneys appear unremarkable. Bladder: Normal. GI System: Visualized bowel appears unremarkable. Appendix is not identified. Lymph nodes: Mildly prominent inguinal lymph nodes noted. Peritoneal cavity and surface: No free fluid. No pneumoperitoneum. Soft Tissues: Normal. Reproductive Organs: Normal. Bones: No acute fracture or aggressive osseous lesion. Impression: Vascular: 1. No evidence of vascular disease. Right Lower Extremity: 1. Patent inflow 2. Patent outflow 3. Patent 3 vessel runoff Left Lower Extremity: 1. Patent inflow 2. Patent outflow 3. Patent 3 vessel runoff Abdomen/Pelvis: 1. No acute abdominal pelvic process. HS:Y ATED BY: MARTIN BAEZ MD DICTATED DATE/TIME: 05/27/24 1439 Signed PATIENT: BRITTANY MERCEDES ACCT: [id number] UNIT: [id number] : 1975 LOC: [facility] ROOM / BED: [facility] / A AGE / SEX: 48 / M ADM STATUS: ADM IN SERVICE 0354 ORDERING PHYSICIAN: JEN MILES RESIDENT PROCEDURE(s): RLEX - LOWER EXTREMITY NON JOINT RIGH REASON: INFECTION ORDER NUMBER(s): [id number], ACCESSION NUMBER(s): [id number] CLINICAL INDICATION: 48 years old, Male; Rule out osteomyelitis. TECHNIQUE: Noncontrast CT of the bilateral lower extremities was performed. Sagittal and coronal reformatted images are provided. COMPARISON: None CT Dose: CTDI volume is 9.31 mGy. Dose-length product is 1028.1 mGy*cm FINDINGS: No fracture or dislocation. No cortical destruction or erosions. Soft tissue swelling in the feet. No obvious fluid collection. IMPRESSION: 1. No CT evidence of osteomyelitis. 2. Soft tissue swelling in the bilateral feet, nonspecific. All CT scans at this medical facility are performed using dose modulation techniques as appropriate to a performed exam including the following: Automated exposure control was utilized; adjustment of the MA and/or KV according to patient size; and use of iterative reconstruction technique. ATED BY: SCOTT BANKS MD DICTATED DATE/TIME: 05/27/24 0500 PATIENT: BRITTANY MERCEDES ACCT: [id number] UNIT: [id number] : 1975 LOC: [facility] ROOM / BED: [address] [place] [address] AGE / SEX: 48 / M ADM STATUS: ADM IN SERVICE 0231 ORDERING PHYSICIAN: JEN MILES RESIDENT PROCEDURE(s): LLEX - LEFT LOWER EXTREMITY W/O CON REASON: Rule out osteomyelitis ORDER NUMBER(s): [id number], ACCESSION NUMBER(s): [id number] CLINICAL INDICATION: 48 years old, Male; Rule out osteomyelitis. TECHNIQUE: Noncontrast CT of the bilateral lower extremities was performed. Sagittal and coronal reformatted images are provided. COMPARISON: None CT Dose: CTDI volume is 9.31 mGy. Dose-length product is 1028.1 mGy*cm FINDINGS: No fracture or dislocation. No cortical destruction or erosions. Soft tissue swelling in the feet. No obvious fluid collection. IMPRESSION: 1. No CT evidence of osteomyelitis. 2. Soft tissue swelling in the bilateral feet, nonspecific. All CT scans at this medical facility are performed using dose modulation techniques as appropriate to a performed exam including the following: Automated exposure control was utilized; adjustment of the MA and/or KV according to patient size; and use of iterative reconstruction technique. ATED BY: SCOTT BANKS MD DICTATED DATE/TIME: 05/27/24434 Signed PATIENT: BRITTANY MERCEDES ACCT: [id number] UNIT: [id number] : 1975 LOC: [facility] ROOM / BED: [facility] A AGE / SEX: 48 / M ADM STATUS: ADM IN SERVICE 0231 ORDERING PHYSICIAN: JEN MILES PROCEDURE(s): LLEX - LEFT LOWER EXTREMITY W/O CON REASON: Rule out osteomyelitis ORDER NUMBER(s): [id number], ACCESSION NUMBER(s): [id number] CLINICAL INDICATION: 48 years old, Male; Rule out osteomyelitis. TECHNIQUE: Noncontrast CT of the bilateral lower extremities was performed. Sagittal and coronal reformatted images are provided. COMPARISON: None CT Dose: CTDI volume is 9.31 mGy. Dose-length product is 1028.1 mGy*cm FINDINGS: No fracture or dislocation. No cortical destruction or erosions. Soft tissue swelling in the feet. No obvious fluid collection. IMPRESSION: 1. No CT evidence of osteomyelitis. 2. Soft tissue swelling in the bilateral feet, nonspecific. All CT scans at this medical facility are performed using dose modulation techniques as appropriate to a performed exam including the following: Automated exposure control was utilized; adjustment of the MA and/or KV according to patient size; and use of iterative reconstruction technique. ATED BY: SCOTT BANKS MD DICTATED DATE/TIME: 05/27/24434 PATIENT: BRITTANY MERCEDES ACCT: [id number] UNIT: [id number] : 1975 LOC: [facility] ROOM / BED: [facility] / B AGE / SEX: 48 / M ADM STATUS: ADM IN SERVICE 0220 ORDERING PHYSICIAN: JEN MILES PROCEDURE(s): BLDVT - BiLat Lower DVT REASON: Limb swelling ORDER NUMBER(s): [id number], ACCESSION NUMBER(s): [id number] BILATERAL LOWER EXTREMITY VENOUS DOPPLER CLINICAL HISTORY: Limb swelling Technique: Duplex Doppler evaluation of the deep venous systems of both lower extremities from the common femoral veins to the popliteal veins including color Doppler and spectral/pulsed waveform analysis was performed. COMPARISON: None FINDINGS: The right and left common femoral, superficial femoral, popliteal, posterior tibial veins and trifurcations appear patent with normal augmentation, phasicity, compressibility and color-flow. IMPRESSION: 1. There is no sonographic evidence for DVT in the lower extremities. HS:Y ATED BY: TOBIAS ALVARENGA MD DICTATED DATE/TIME: 05/27/24 1133 PATIENT: BRITTANY MERCEDES ACCT: [id number] UNIT: [id number] : 1975 LOC: [facility] ROOM / BED: [address] [place] [address] AGE / SEX: 48 / M ADM STATUS: ADM IN SERVICE 9 ORDERING PHYSICIAN: JEN MILES RESIDENT PROCEDURE(s): BLEAD - BiLat Low Ext Art Duplex REASON: Rule Out PAD ORDER NUMBER(s): [id number], ACCESSION NUMBER(s): [id number] Bilateral Lower Extremity Arterial Duplex Date: 05/27/2024 10:49 AM Clinical History: Rule Out PAD Comparison: None Findings: Duplex Doppler evaluation including color Doppler and spectral/pulsed waveform analysis of the lower extremity arteries was performed. Velocities and waveforms within normal limits REFERENCE VALUES, [facility]) vascular Imaging Lab Criteria: Peak systolic velocity ranges (in cm/sec) are as follows: <150 cm/s - <20 % stenosis 150-200 cm/s - 20-49% stenosis 200-300 cm/s - 50-75% stenosis >300 cm/s -> 75% stenosis IMPRESSION: There is no evidence for peripheral vascular insufficiency in the right lower extremity. There is no evidence for peripheral vascular insufficiency in the left lower extremity. No significant focal stenosis is identified. END IMPRESSION: ATED BY: ROXANA HARVEY MD DICTATED DATE/TIME: 05/27/24 1145 Laboratory Results Test 05/29/24 09:40 05/27/24 18:10 05/27/24 02:42 05/26/24 20:38 White Blood Count 7.1 10^3/uL (4.4-10.8) Red Blood Count 4.72 10^6/uL (4.5-5.90) Hemoglobin 16.2 g/dL (13.5-17.5) Hematocrit 46.2 % (41.0-53.0) Mean Corpuscular Volume 97.8 fL (80.0-100.0) Mean Corpuscular Hemoglobin 34.2 pg (28.0-32.0) Mean Corpuscular Hemoglobin Concent 35.0 g/dL (32.0-36.0) Red Cell Distribution Width 12.6 % (11.8-14.3) Platelet Count 247 10^3/uL (140-450) Mean Platelet Volume 8.0 fL (6.9-10.8) Neutrophils (%) (Auto) 66.7 % (37.0-80.0) Lymphocytes (%) (Auto) 24.3 % (10.0-50.0) Monocytes (%) (Auto) 5.4 % (0.0-12.0) Eosinophils (%) (Auto) 3.2 % (0.0-7.0) Basophils (%) (Auto) 0.4 % (0.0-2.0) Neutrophils # (Auto) 4.7 10 ^3/uL (1.6-8.6) Lymphocytes # (Auto) 1.7 10 ^3/uL (0.4-5.4) Monocytes # (Auto) 0.4 10 ^3/uL (0-1.3) Eosinophils # (Auto) 0.2 10 ^3/uL (0-0.8) Basophils # (Auto) 0 10 ^3/uL (0-0.2) Nucleated Red Blood Cells 0.2 % Sodium Level 140 mmol/L (136-145) Potassium Level 4.2 mmol/L (3.5-5.1) Chloride Level 107 mmol/L (98-107) Carbon Dioxide Level 27 mmol/L (20-31) Anion Gap 6 (5-15) Blood Urea Nitrogen 18 mg/dL (9-23) Creatinine 0.89 mg/dL (0.700-1.30) Glomerular Filtration Rate Calc 107 mL/min (>90) BUN/Creatinine Ratio 20.2 (10.0-20.0) Serum Glucose 88 mg/dL (74-106) Calcium Level 9.9 mg/dL (8.7-10.4) Urine Color Light-yellow (Yellow) Urine Clarity Clear (Clear) Urine pH 6.5 (5.0-9.0) Urine Specific [place] 1.049 (1.001-1.035) Urine Protein Negative (Negative) Urine Ketones Negative (Negative) Urine Blood Negative /uL (Negative) Urine Nitrite Negative (Negative) Urine Bilirubin Negative (Negative) Urine Urobilinogen Normal mg/dL (Negative) Urine Leukocyte Esterase Negative /uL (Negative) Urine RBC 2 /hpf (0 - 3) Urine Microscopic WBC < 1 /HPF (0-3) Urine Squamous Epithelial Cells Few /hpf (<5) Urine Bacteria None seen /hpf (None Seen) Urine Glucose Normal mg/dL (Normal) Urine Opiates Screen Neg (NEGATIVE) Urine Fentanyl Screen Pos (NEGATIVE) Urine Barbiturates Screen Neg (NEGATIVE) Urine Phencyclidine Screen Neg (NEGATIVE) Urine Amphetamines Screen Pos (NEGATIVE) Urine Benzodiazepines Screen Neg (NEGATIVE) Urine Cocaine Screen Neg (NEGATIVE) Urine Cannabinoids Screen Pos (NEGATIVE) Prothrombin Time 10.2 sec (9.3-11.8) Prothrombin Time INR 0.96 (0.9-1.15) Activated Partial Thromboplast Time 32.5 SEC (24.5-34.5) Hemoglobin A1c 5.3 % A1C (<5.7) Phosphorus Level 3.5 mg/dL (2.4-5.1) Magnesium Level 2.0 mg/dL (1.6-2.6) Triglycerides Level 52 mg/dL (< 150) Cholesterol Level 118 mg/dL (< 200) LDL Cholesterol 66 mg/dL (< 100) HDL Cholesterol 41 mg/dL (40-59) Vitamin B12 Level 673 pg/mL (211-911) Vitamin D 25-Hydroxy 38.7 ng/mL (30.0-100) Thyroid Stimulating Hormone (TSH) 2.37 uIU/mL (0.55-4.78) HIV (1&2) Antibody Negative (Negative) Lactic Acid Level 1.6 mmol/L (0.4-2.0) Total Bilirubin 1.0 mg/dL (0.2-1.0) Aspartate Amino Transferase (AST) 22 U/L (13-40) Alanine Aminotransferase (ALT) 15 U/L (7-40) Alkaline Phosphatase 89 U/L (46-116) Total Protein 7.1 g/dL (5.7-8.2) Albumin 4.6 g/dL (3.2-4.8) Other Laboratory Tests 05/29/24 09:40 Brief Hx & Hospital Course: Hospital course Patient is a 48-year-old male patient who presented to the ED with chief complaint of nonhealing lower limb bilateral wounds, which have been present for the past five years, but in the past three days have increased in pain, pruritus, and erythema which was exacerbated after traumatic injury, associated also with chills and dyspnea in variable functional class. Denies palpitation, syncope, chest pain, nausea, vomiting, diarrhea, bleeding, sick contacts, recent travel and motor or sensory deficits. Initial lab work showed elevated d-dimer. There is no sonographic evidence for DVT in the lower extremities. Angio aorta run off did not show any acute abdominal pelvic process. Wound culture taken and patient started on empirical antibiotics. Wound culture grew Beta-Hemolytic Group A Streptococcus sensitive to ceftriaxone. He was also seen by the wound care nurse and the eschar removed and the wound dressed. Other findings noted on this admission was the patient test positive for fentanyl, amphetamine and marijuana Surgical history: Appendectomy Family history: Mother had heart disease and emphysema Social history: Lives in [place] alone in a cabin. Current smoker (approximate 15 pack-year history of smoking) occasional marijuana and alcohol. Abuses fentanyl and methamphetamine. Denies any other drug abuse Allergies: Denies Home medication: Denies This morning before I could see the patient he left AMA. The nursing note, "P atient states they do not trust this RN, healthcare or [employer]. Patient continues to ramble angrily. Patient dressed into street clothing and stated that they are leaving. This RN attempted to reorient and educate patient on plan of care and the risks of leaving against medical advice, patient states they are willing to sign AMA papers and they want to leave. Patient then abruptly left room with all belongings and entered elevator to leave telemetry floor. Security notified of patient departure." Condition at Discharge: Undetermined Final Diagnosis/Problems List Cellulitis bilateral, wound culture grew strep group A History of seizures Polysubstance abuse (tobacco, marijuana, ethanol, methamphetamine and fentanyl) Osteomyelitis ruled out Peripheral artery disease and DVT ruled out Discharge Statement: "Patient was advised to return to the ER or call 911 if any headaches, dizziness, shortness of breath, chest pain, abdominal pain, bleeding, fevers, or worsening of medical condition. Patient was counseled about treatment plan, medications, possible side effects, patientverbalized understanding. All questions were answered to the best of my ability. This discharge took greater then 30 minutes in planning, reviewing documentation, counseling the patient, and discussing with other team members." ASSESSMENT ASSESSMENT Assessment GIOVANNY NORTON RESIDENT May 29, 2024 11:45
[2024-05-29] MEDS ORDERED: CEFD300C2 PO (17:45)
--- NOTE | 2024-05-29 18:05 | DVHDSRES ---
Discharge Summary Date of Admission Resident Creating Document: GIOVANNY NORTON May 27, 2024 at 02:20 Date of Discharge: May 29, 2024 Admitting Diagnosis Bilateral cellulitis Labs/Diagnostic Data: PATIENT: BRITTANY MERCEDES ACCT: [id number] UNIT: [id number] : 1975 LOC: [facility] ROOM / BED: [address] [place] [address] AGE / SEX: 48 / M ADM STATUS: ADM IN SERVICE 0400 ORDERING PHYSICIAN: JEN MILES PROCEDURE(s): CXR2 - CHEST TWO VIEWS ROUTINE REASON: SOB ORDER NUMBER(s): [id number], ACCESSION NUMBER(s): [id number] CHEST TWO VIEWS ROUTINE CLINICAL HISTORY: SOB COMPARISON: None TECHNIQUE: Frontal and lateral view of the chest was obtained FINDINGS: Lines and Tubes: None Lungs: No focal consolidation. Pleura: No effusion. No pneumothorax. Cardiomediastinal contours: Unremarkable Bones: No acute osseous abnormality. IMPRESSION: 1. No acute cardiopulmonary disease. ATED BY: SCOTT BANKS MD DICTATED DATE/TIME: 05/28/24 0911 PATIENT: BRITTANY MERCEDES ACCT: [id number] UNIT: [id number] : 1975 LOC: [facility] ROOM / BED: [address] [place] [address] AGE / SEX: 48 / M ADM STATUS: ADM IN SERVICE 1211 ORDERING PHYSICIAN: GIOVANNY NORTON PROCEDURE(s): CTAAA - CT ANGIO ABD AORTA W RUN OFF REASON: asses vascular patency ORDER NUMBER(s): [id number], ACCESSION NUMBER(s): [id number] Examination: CT CT ANGIO ABD AORTA W RUN OFF CLINICAL HISTORY: asses vascular patency Comparison: None Technique: Using helical technique, CT data from the abdomen through the toes was obtained during rapid IV contrast infusion of 100 cc Omni 350. The examination was timed to the arterial system to generate a CT angiographic study. 3D images were generated at an independent work station. Dose reduction techniques included automated exposure control. Radiation Dose Information: CT Dose: CTDI volume is 7.4 mGy. Dose-length product is 981.12 mGy*cm Findings: Abdominal aorta: Normal caliber, patent ENRIQUE: Patent Right lower extremity: Common iliac artery: Patent External iliac artery: Patent Internal iliac artery: Patent Common femoral artery: Patent Profunda femoral artery: Patent Superficial femoral artery: Patent Popliteal artery: Patent Anterior tibial artery: Patent Peroneal tibial trunk: Patent Peroneal artery: Patent Posterior tibial artery: Patent Dorsalis pedis artery: Patent Left lower extremity: Common iliac artery: Patent External iliac artery: Patent Internal iliac artery: Patent Common femoral artery: Patent Profunda femoral artery: Patent Superficial femoral artery: Patent Popliteal artery: Patent Anterior tibial artery: Patent Peroneal tibial trunk: Patent Peroneal artery: Patent Posterior tibial artery: Patent Dorsalis pedis artery: Patent Abdomen/Pelvis: Liver: Visualized liver appears unremarkable. Biliary System: Gallbladder: Normal Spleen: Visualized spleen appears unremarkable Pancreas: Visualized pancreas appears unremarkable. Urinary System: Kidneys and Ureters: Visualized kidneys appear unremarkable. Bladder: Normal. GI System: Visualized bowel appears unremarkable. Appendix is not identified. Lymph nodes: Mildly prominent inguinal lymph nodes noted. Peritoneal cavity and surface: No free fluid. No pneumoperitoneum. Soft Tissues: Normal. Reproductive Organs: Normal. Bones: No acute fracture or aggressive osseous lesion. Impression: Vascular: 1. No evidence of vascular disease. Right Lower Extremity: 1. Patent inflow 2. Patent outflow 3. Patent 3 vessel runoff Left Lower Extremity: 1. Patent inflow 2. Patent outflow 3. Patent 3 vessel runoff Abdomen/Pelvis: 1. No acute abdominal pelvic process. HS:Y ATED BY: MARTIN BAEZ MD DICTATED DATE/TIME: 05/27/24 1439 PATIENT: BRITTANY MERCEDES ACCT: [id number] UNIT: [id number] : 1975 LOC: [facility] ROOM / BED: [facility] / A AGE / SEX: 48 / M ADM STATUS: ADM IN SERVICE 0354 ORDERING PHYSICIAN: JEN MILES RESIDENT PROCEDURE(s): RLEX - LOWER EXTREMITY NON JOINT RIGH REASON: INFECTION ORDER NUMBER(s): [id number], ACCESSION NUMBER(s): [id number] CLINICAL INDICATION: 48 years old, Male; Rule out osteomyelitis. TECHNIQUE: Noncontrast CT of the bilateral lower extremities was performed. Sagittal and coronal reformatted images are provided. COMPARISON: None CT Dose: CTDI volume is 9.31 mGy. Dose-length product is 1028.1 mGy*cm FINDINGS: No fracture or dislocation. No cortical destruction or erosions. Soft tissue swelling in the feet. No obvious fluid collection. IMPRESSION: 1. No CT evidence of osteomyelitis. 2. Soft tissue swelling in the bilateral feet, nonspecific. All CT scans at this medical facility are performed using dose modulation techniques as appropriate to a performed exam including the following: Automated exposure control was utilized; adjustment of the MA and/or KV according to patient size; and use of iterative reconstruction technique. ATED BY: SCOTT BANKS MD DICTATED DATE/TIME: 05/27/24 0500 PATIENT: BRITTANY MERCEDES ACCT: [id number] UNIT: [id number] : 1975 LOC: [facility] ROOM / BED: [address] [place] [address] AGE / SEX: 48 / M ADM STATUS: ADM IN SERVICE 023 ORDERING PHYSICIAN: JEN MILES RESIDENT PROCEDURE(s): LLEX - LEFT LOWER EXTREMITY W/O CON REASON: Rule out osteomyelitis ORDER NUMBER(s): [id number], ACCESSION NUMBER(s): [id number] CLINICAL INDICATION: 48 years old, Male; Rule out osteomyelitis. TECHNIQUE: Noncontrast CT of the bilateral lower extremities was performed. Sagittal and coronal reformatted images are provided. COMPARISON: None CT Dose: CTDI volume is 9.31 mGy. Dose-length product is 1028.1 mGy*cm FINDINGS: No fracture or dislocation. No cortical destruction or erosions. Soft tissue swelling in the feet. No obvious fluid collection. IMPRESSION: 1. No CT evidence of osteomyelitis. 2. Soft tissue swelling in the bilateral feet, nonspecific. All CT scans at this medical facility are performed using dose modulation techniques as appropriate to a performed exam including the following: Automated exposure control was utilized; adjustment of the MA and/or KV according to patient size; and use of iterative reconstruction technique. ATED BY: SCOTT BANKS MD DICTATED DATE/TIME: 05/27/24 0435 PATIENT: BRITTANY MERCEDES ACCT: [id number] UNIT: [id number] : 1975 LOC: [facility] ROOM / BED: [address] [place] [address] AGE / SEX: 48 / M ADM STATUS: ADM IN SERVICE 9 ORDERING PHYSICIAN: JEN MILES RESIDENT PROCEDURE(s): BLDVT - BiLat Lower DVT REASON: Limb swelling ORDER NUMBER(s): [id number], ACCESSION NUMBER(s): [id number] BILATERAL LOWER EXTREMITY VENOUS DOPPLER CLINICAL HISTORY: Limb swelling Technique: Duplex Doppler evaluation of the deep venous systems of both lower extremities from the common femoral veins to the popliteal veins including color Doppler and spectral/pulsed waveform analysis was performed. COMPARISON: None FINDINGS: The right and left common femoral, superficial femoral, popliteal, posterior tibial veins and trifurcations appear patent with normal augmentation, phasicity, compressibility and color-flow. IMPRESSION: 1. There is no sonographic evidence for DVT in the lower extremities. HS:Y ATED BY: TOBIAS ALVARENGA MD DICTATED DATE/TIME: 05/27/24 1133 PATIENT: BRITTANY MERCEDES ACCT: [id number] UNIT: [id number] : 1975 LOC: [facility] / BED: [address] [place] [address] AGE / SEX: 48 / M ADM STATUS: ADM IN SERVICE 9 ORDERING PHYSICIAN: JEN MILES PROCEDURE(s): BLEAD - BiLat Low Ext Art Duplex REASON: Rule Out PAD ORDER NUMBER(s): [id number], ACCESSION NUMBER(s): [id number] Bilateral Lower Extremity Arterial Duplex Date: 05/27/2024 10:49 AM Clinical History: Rule Out PAD Comparison: None Findings: Duplex Doppler evaluation including color Doppler and spectral/pulsed waveform analysis of the lower extremity arteries was performed. Velocities and waveforms within normal limits REFERENCE VALUES, [facility]) vascular Imaging Lab Criteria: Peak systolic velocity ranges (in cm/sec) are as follows: <150 cm/s - <20 % stenosis 150-200 cm/s - 20-49% stenosis 200-300 cm/s - 50-75% stenosis >300 cm/s -> 75% stenosis IMPRESSION: There is no evidence for peripheral vascular insufficiency in the right lower extremity. There is no evidence for peripheral vascular insufficiency in the left lower extremity. No significant focal stenosis is identified. END IMPRESSION: Laboratory Results Test 05/29/24 09:40 05/27/24 18:10 05/27/24 02:42 05/26/24 20:38 White Blood Count 7.1 10^3/uL (4.4-10.8) Red Blood Count 4.72 10^6/uL (4.5-5.90) Hemoglobin 16.2 g/dL (13.5-17.5) Hematocrit 46.2 % (41.0-53.0) Mean Corpuscular Volume 97.8 fL (80.0-100.0) Mean Corpuscular Hemoglobin 34.2 pg (28.0-32.0) Mean Corpuscular Hemoglobin Concent 35.0 g/dL (32.0-36.0) Red Cell Distribution Width 12.6 % (11.8-14.3) Platelet Count 247 10^3/uL (140-450) Mean Platelet Volume 8.0 fL (6.9-10.8) Neutrophils (%) (Auto) 66.7 % (37.0-80.0) Lymphocytes (%) (Auto) 24.3 % (10.0-50.0) Monocytes (%) (Auto) 5.4 % (0.0-12.0) Eosinophils (%) (Auto) 3.2 % (0.0-7.0) Basophils (%) (Auto) 0.4 % (0.0-2.0) Neutrophils # (Auto) 4.7 10 ^3/uL (1.6-8.6) Lymphocytes # (Auto) 1.7 10 ^3/uL (0.4-5.4) Monocytes # (Auto) 0.4 10 ^3/uL (0-1.3) Eosinophils # (Auto) 0.2 10 ^3/uL (0-0.8) Basophils # (Auto) 0 10 ^3/uL (0-0.2) Nucleated Red Blood Cells 0.2 % Sodium Level 140 mmol/L (136-145) Potassium Level 4.2 mmol/L (3.5-5.1) Chloride Level 107 mmol/L (98-107) Carbon Dioxide Level 27 mmol/L (20-31) Anion Gap 6 (5-15) Blood Urea Nitrogen 18 mg/dL (9-23) Creatinine 0.89 mg/dL (0.700-1.30) Glomerular Filtration Rate Calc 107 mL/min (>90) BUN/Creatinine Ratio 20.2 (10.0-20.0) Serum Glucose 88 mg/dL (74-106) Calcium Level 9.9 mg/dL (8.7-10.4) Urine Color Light-yellow (Yellow) Urine Clarity Clear (Clear) Urine pH 6.5 (5.0-9.0) Urine Specific [place] 1.049 (1.001-1.035) Urine Protein Negative (Negative) Urine Ketones Negative (Negative) Urine Blood Negative /uL (Negative) Urine Nitrite Negative (Negative) Urine Bilirubin Negative (Negative) Urine Urobilinogen Normal mg/dL (Negative) Urine Leukocyte Esterase Negative /uL (Negative) Urine RBC 2 /hpf (0 - 3) Urine Microscopic WBC < 1 /HPF (0-3) Urine Squamous Epithelial Cells Few /hpf (<5) Urine Bacteria None seen /hpf (None Seen) Urine Glucose Normal mg/dL (Normal) Urine Opiates Screen Neg (NEGATIVE) Urine Fentanyl Screen Pos (NEGATIVE) Urine Barbiturates Screen Neg (NEGATIVE) Urine Phencyclidine Screen Neg (NEGATIVE) Urine Amphetamines Screen Pos (NEGATIVE) Urine Benzodiazepines Screen Neg (NEGATIVE) Urine Cocaine Screen Neg (NEGATIVE) Urine Cannabinoids Screen Pos (NEGATIVE) Prothrombin Time 10.2 sec (9.3-11.8) Prothrombin Time INR 0.96 (0.9-1.15) Activated Partial Thromboplast Time 32.5 SEC (24.5-34.5) Hemoglobin A1c 5.3 % A1C (<5.7) Phosphorus Level 3.5 mg/dL (2.4-5.1) Magnesium Level 2.0 mg/dL (1.6-2.6) Triglycerides Level 52 mg/dL (< 150) Cholesterol Level 118 mg/dL (< 200) LDL Cholesterol 66 mg/dL (< 100) HDL Cholesterol 41 mg/dL (40-59) Vitamin B12 Level 673 pg/mL (211-911) Vitamin D 25-Hydroxy 38.7 ng/mL (30.0-100) Thyroid Stimulating Hormone (TSH) 2.37 uIU/mL (0.55-4.78) HIV (1&2) Antibody Negative (Negative) Lactic Acid Level 1.6 mmol/L (0.4-2.0) Total Bilirubin 1.0 mg/dL (0.2-1.0) Aspartate Amino Transferase (AST) 22 U/L (13-40) Alanine Aminotransferase (ALT) 15 U/L (7-40) Alkaline Phosphatase 89 U/L (46-116) Total Protein 7.1 g/dL (5.7-8.2) Albumin 4.6 g/dL (3.2-4.8) Other Laboratory Tests 05/29/24 09:40 Brief Hx & Hospital Course: History and physical Patient is a 48-year-old male patient who presented to the ED with chief complaint of nonhealing lower limb bilateral wounds, which have been present for the past five years, but in the past three days have increased in pain, pruritus, and erythema which was exacerbated after traumatic injury, associated also with chills and dyspnea in variable functional class. Denies palpitation, syncope, chest pain, nausea, vomiting, diarrhea, bleeding, sick contacts, recent travel and motor or sensory deficits. lower extremity arterial duplex scan showed There is no evidence for peripheral vascular insufficiency in the right lower extremity. There is no evidence for peripheral vascular insufficiency in the left lower extremity.Venous duplex was negative for PE. Of note, patient was seen in the hospital in 03/2024 Surgical history: Appendectomy Family history: Mother had heart disease and emphysema Social history: Lives in [place] alone in a cabin. Current smoker (approximate 15 pack-year history of smoking) occasional marijuana and alcohol. Abuses fentanyl and methamphetamine. Denies any other drug abuse Allergies: Denies Home medication: Denies BRIEF HOSPITAL COURSE In the Hospital, His initial lab work was unremarkable.He had an angio aorta run off showed No acute abdominal pelvic process. The swelling and the erythema was getting better. He was seen by wound care nurse. Wound clean and sample taken for culture. He received Zosyn for empirical coverage. Wound culture grew strep group A sensitive to cephalosporins. Antibiotic deescalated to Ceftriaxone daily. Patient's UDS showed patient was positive for fentanyl, amphetamine and marijuana. This before I saw the patient apparently was nurses on oxygen care of him does not trust Healthcare system so he sat AMA. Diagnoses Cellulitis bilateral, wound culture grew strep group A Chronic nonhealing bilateral lower limb wounds Polysubstance abuse (tobacco, marijuana, ethanol, methamphetamine and fentanyl) Smoker, 15 pack-year history of smoking Alcohol abuser History of seizures Osteomyelitis ruled out Peripheral artery disease and DVT ruled out Case discussed with Dr. Meade Consults/Reason for consult Wound Care Wound care provided per MD order. Patient tolerated well and verbalized dressing care instructions. Condition at Discharge: Undetermined Final Diagnosis/Problems List Cellulitis bilateral, wound culture grew strep group A Chronic nonhealing bilateral lower limb wounds Polysubstance abuse (tobacco, marijuana, ethanol, methamphetamine and fentanyl) Smoker, 15 pack-year history of smoking Alcohol abuser History of seizures Osteomyelitis ruled out Peripheral artery disease and DVT ruled out Discharge Disposition: AMA Discharge Statement: "Patient was advised to return to the ER or call 911 if any headaches, dizziness, shortness of breath, chest pain, abdominal pain, bleeding, fevers, or worsening of medical condition. Patient was counseled about treatment plan, medications, possible side effects, patientverbalized understanding. All questions were answered to the best of my ability. This discharge took greater then 30 minutes in planning, reviewing documentation, counseling the patient, and discussing with other team members." ASSESSMENT ASSESSMENT Assessment Cellulitis bilateral, wound culture grew strep group AHistory of seizures Polysubstance abuse (tobacco, marijuana, ethanol, methamphetamine andfentanyl)Osteomyelitis ruled outPeripheral artery disease and DVT ruled out Date of Service: May 29, 2024 Billing Provider: ROC MEADE MD Common Visit Codes: 20301-BLO/OBS DISCH DAY >30min GIOVANNY NORTON RESIDENT May 29, 2024 18:05 ROC MEADE MD Jun 04, 2024 20:00
--- NOTE | 2024-05-31 11:22 | PEER ---
Peer to Peer Review Time DATE: 05/31/24 TIME: 11:21 Review and Recommendations: Approved for inpatient by Dr. Salinas for Open Wounds, non healing. BHASKAR VALENZUELA MD May 31, 2024 11:21
== END 2024-05-29 10:15 | disposition left against medical advice (07) | DRG 383 ==
LOC: ER 19:00 → OVERFLOW 05-27 02:20 → WEST WING 05-27 04:25
PROVIDERS: ADMIT Student in an Organized Health Care Education/Training Program; ATTEND Nurse Practitioner Family
DX: L03.115 Cellulitis of right lower limb (principal); A46 Erysipelas; F11.10 Opioid abuse, uncomplicated; F12.10 Cannabis abuse, uncomplicated; F10.10 Alcohol abuse, uncomplicated; Y90.9 Presence of alcohol in blood, level not specified; F17.210 Nicotine dependence, cigarettes, uncomplicated; F15.10 Other stimulant abuse, uncomplicated; B95.0 Streptococcus, group A, as the cause of diseases classified elsewhere; Z53.29 Procedure and treatment not carried out because of patient's decision for other reasons; L03.116 Cellulitis of left lower limb; Z79.1 Long term (current) use of non-steroidal anti-inflammatories (NSAID); Z79.899 Other long term (current) drug therapy; Z82.49 Family history of ischemic heart disease and other diseases of the circulatory system; Z71.51 Drug abuse counseling and surveillance of drug abuser
CPT/HCPCS: 36415; 71046; 73700; 75635; 80048; 80053; 80061; 80307; 81001; 82306; 82607; 83036; 83605; 83735; 84100; 84443; 85025; 85610; 85730; 86703; 87040; 87077; 87081; 87186; 87205; 93925; 93970; 96365; 96375; G0378; J1885; J2470; J2543

== ENCOUNTER 2024-09-30 18:13 | Inpatient (IN) | payer OTHER ==
[~2024-09-30] VITALS: Ht 177.8 cm; Wt 86.7 kg
[~2024-09-30 18:13] MED LIST changes: -BACI1OIN45 EX; -IBUP-1454 PO
[2024-09-30] MEDS ORDERED: VANCOMYCIN 1GM/200ML PM 200 ML IV ONE (19:00)
[2024-09-30] MEDS: cefTRIAXone 1GM/50ML D5W 50 ML IV ONE (19:00)
--- NOTE | 2024-09-30 19:19 | ED.PDOC ---
History of Present Illness(SKN HPI Comments This is a 48 year-old male who presents to the ED with a chief complaint of wound to right polo with associated redness and drainage as of X2 weeks ago. Patient reports having the wound for X5 years, with it worsening after trauma to the area. Patient states he was admitted to [facility] recently for surgical services, but left due to poor care and planning. Patient came to the ED today upon worsening symptoms with further associated symptoms of chills and fever. Patient has no further complaints at this time and otherwise denies chest pain, dizziness, N/V, or dysuria. REVIEW OF SYSTEMS: General: (+) fever, (+) chills, or fatigue HEENT: No sore throat, no earache, no congestion, no neck pain. Cardiac: No chest pain. No palpitations. Lungs: No shortness of breath, no cough. GI: No nausea, no vomiting, no diarrhea, no constipation, no abdominal pain : No dysuria, frequency, or urgency. No hematuria. Musculoskeletal: No joint pain , no joint swelling, no extremity edema. Skin: (+) drainage, (+) redness, (+) itching. Neuro: No headache, no dizziness, no weakness PHYSICAL EXAM: General: Awake, alert and oriented. No acute distress. Skin: (+) erythema over the R lower leg with multiple ulcerations draining purulent fluid HEENT: The head is normocephalic and atraumatic. Conjunctivae are clear without exudates or hemorrhage. Sclera is non-icteric. EOM are intact. No signs of nystagmus. Eyelids are normal in appearance without swelling or lesions. Oral mucosa is pink and moist Neck: The neck is supple with normal range of motion. No JVD. Cardiac: Heart rate and rhythm are normal. No murmurs, gallops, or rubs are au scultated. Respiratory: No signs of respiratory distress. Lung sounds are clear in all lobes bilaterally without rales, rhonchi, or wheezes. Abdominal: Abdomen is soft, non-tender without distention, guarding or rigidity. Bowel sounds are present and normoactive in all four quadrants. Extremities: Upper and lower extremities are atraumatic in appearance without deformity or edema. Neurological: The patient is awake, alert and oriented to person, place, and time with normal speech. Speech is clear. There is no facial asymmetry. Psychiatric: Appropriate mood and affect. Good judgement and insight. Chief Complaint: Wound Check Time Seen by MD: 19:08 Primary Care Provider: NONE History of Present Illness: Medications, Allergies Allergies: Coded Allergies: NO KNOWN ALLERGIES (Unverified , 03/23/24) Information Source: Patient Mode of Arrival: Ambulatory Severity: Moderate Timing: Other (worened over 5 years ) Location: Leg (R polo ) Mechanism: Preceding Wound Associated Signs and Symptoms: Fever, Chills Past Medical History PAST MEDICAL HISTORY: Seizures Surgical History: Appendectomy, Denies all surgeries Family History Family History: Reviewed,noncontributory to illness Social History Smoker: Cigarettes Alcohol: Rarely Drugs: Marijuana Lives In: Home Was a procedure done? Was a procedure done?: No Differential Diagnosis (INTG) Differential Diagnosis: Abrasion, Insect Envenomation, Laceration, Puncture Wound X-Ray, Labs, Meds, VS Vital Signs Date Time Temp Pulse Resp B/P (MAP) Pulse Ox O2 Delivery O2 Flow Rate FiO2 09/30/24 18:14 97.4 84 20 130/83 98 97.4 Lab Test 09/30/24 21:07 09/30/24 19:23 Range/Units Lactic Acid Level 1.4 2.7 *H 0.4-2.0 mmol/L White Blood Count 7.4 4.4-10.8 10^3/uL Red Blood Count 4.54 4.5-5.90 10^6/uL Hemoglobin 15.9 13.5-17.5 g/dL Hematocrit 45.3 41.0-53.0 % Mean Corpuscular Volume 99.8 80.0-100.0 fL Mean Corpuscular Hemoglobin 35.0 H 28.0-32.0 pg Mean Corpuscular Hemoglobin Concent 35.0 32.0-36.0 g/dL Red Cell Distribution Width 12.5 11.8-14.3 % Platelet Count 312 140-450 10^3/uL Mean Platelet Volume 8.1 6.9-10.8 fL Neutrophils (%) (Auto) 57.7 37.0-80.0 % Lymphocytes (%) (Auto) 30.0 10.0-50.0 % Monocytes (%) (Auto) 5.6 0.0-12.0 % Eosinophils (%) (Auto) 5.8 0.0-7.0 % Basophils (%) (Auto) 0.9 0.0-2.0 % Neutrophils # (Auto) 4.3 1.6-8.6 10 ^3/uL Lymphocytes # (Auto) 2.2 0.4-5.4 10 ^3/uL Monocytes # (Auto) 0.4 0-1.3 10 ^3/uL Eosinophils # (Auto) 0.4 0-0.8 10 ^3/uL Basophils # (Auto) 0.1 0-0.2 10 ^3/uL Nucleated Red Blood Cells 0.0 % Sodium Level 142 136-145 mmol/L Potassium Level 3.6 3.5-5.1 mmol/L Chloride Level 108 H 98-107 mmol/L Carbon Dioxide Level 27 20-31 mmol/L Anion Gap 7 5-15 Blood Urea Nitrogen 10 9-23 mg/dL Creatinine 1.07 0.700-1.30 mg/dL Glomerular Filtration Rate Calc 87 >90 mL/min BUN/Creatinine Ratio 9.3 L 10.0-20.0 Serum Glucose 117 H 74-106 mg/dL Calcium Level 9.0 8.7-10.4 mg/dL Time of 1ST Reevaluation: 19:45 Reevaluation 1ST: Unchanged Patient Education/Counseling: Need For Follow Up Family Education/Counseling: No Family Present SEPSIS Sepsis Screen Date sepsis recognized/suspect: Sep 30, 2024 Time Sepsis recognized/suspect: 1815 Recent Procedure: No On Antibiotic Therapy: No Respiratory Rate >20: No Heart Rate >90: No Temp<36 C (96.8 F) or >38.3 C: No SBP <90 or MAP <65 mmHG: No New Acute Mental Status Change: No Is the patient on CPAP, BIPAP,: No Physician Orders Blood Culture (09/30/24 18:53) Wound Culture W/ Gs (09/30/24 18:53) Saline Lock (09/30/24 18:53) Vital Signs Date Time Temp Pulse Resp B/P (MAP) Pulse Ox O2 Delivery O2 Flow Rate FiO2 09/30/24 18:14 97.4 84 20 130/83 98 97.4 Laboratory Tests Test 09/30/24 19:23 09/30/24 21:07 Lactic Acid Level 2.7 mmol/L (0.4-2.0) *H 1.4 mmol/L (0.4-2.0) White Blood Count 7.4 10^3/uL (4.4-10.8) Departure 1 Departure Time of Disposition: 20:48 Impression: Primary Impression: Cellulitis of right leg Disposition: ADMITTED INPATIENT Condition: Fair Discharged With: Self Comments MDM: 48-year-old male presents to the emergency department with right lower extremity redness Initial evaluation included thorough history, physical examination and appropriate diagnostic testing. Based on the clinical presentation and diagnostic findings, the patient appears to have cellulitis Antibiotics, IV fluids initiated in the ED Given the complexity of the case and need for further management patient is being admitted to the hospitalist service for further monitoring, treatment and evaluation. Risks, benefits and alternatives of admission and proposed interventions were discussed with the patient. Patient is in agreement with the plan. Extensive evaluation was performed in attempt to identify or rule out: (See differential diagnosis section) The following tests were ordered, and results were reviewed by me and discussed with patient: (See diagnostic results section) The following test were independently interpreted by me: N/A I reviewed and agreed with the following test results read by other providers: N/A I reviewed the following notes from the pt's past medical encounters: Encounter for cellulitis May 27, 2024 Additional information was gathered from interviewing the following independent historians: N/A Discussion of management or test interpretation with external physician/other qualified health technical healthcare consultant: N/A Addressed an acute or chronic illness that poses a threat to life or bodily function: Cellulitis, lactic acidemia Decision regarding hospitalization or escalation of hospital level of care: Risk and benefits of admission for further treatment of patient's condition was considered. Due to patient's current clinical condition, high risk of decline and poor outcome if discharged and need for further inpatient management and monitoring, patient will be admitted to the hospital. Drug therapy requiring intensive monitoring for toxicity: N/A Parenteral controlled substances: N/A Decision regarding elective major surgery with identified patient or procedure risk factors: N/A Decision regarding emergency major surgery: N/A Decision not to resuscitate or to de-escalate care because of poor prognosis: N/A Diagnosis or treatment significantly limited by social determinants of health: N/A Critical Care Note Critical Care Time?: No Stability Stability form required: No Heart Score Heart Score: Heart Score Response (Comments) Value History N/A 0 EKG N/A 0 Age N/A 0 Risk Factors N/A 0 Troponin N/A 0 Total 0 I personally scribed for ALICE CHOE MD ([email or web address]) on 09/30/24 at 19:19. Electronically submitted by Roxane Posey ([employer] I personally scribed for ALICE CHOE MD ([email or web address]) on 09/30/24 at 19:20. E lectronically submitted by Roxane Posey ([email or web address]). ALICE CHOE MD Sep 30, 2024 19:19
[2024-09-30 19:50] LABS: Hematocrit 45.3 % (41.0-53.0); Hemoglobin 15.9 g/dL (13.5-17.5); Mean Corpuscular Hemoglobin 35.0 pg (28.0-32.0); Mean Corpuscular Volume 99.8 fL (80.0-100.0); Nucleated Red Blood Cells % 0.0 %
[2024-09-30 20:06] LABS: Potassium 3.6 mmol/L (3.5-5.1); Sodium 142 mmol/L (136-145)
[2024-09-30 20:07] LABS: Anion Gap 7 (5-15); Calcium 9.0 mg/dL (8.7-10.4); Carbon Dioxide 27 mmol/L (20-31)
[2024-09-30 20:12] LABS: BUN/Creatinine Ratio 9.3 (10.0-20.0); Blood Urea Nitrogen 10 mg/dL (9-23)
[2024-09-30 20:21] LABS: Chloride 108 mmol/L (98-107); Glucose 117 mg/dL (74-106)
[2024-09-30] MEDS: VANCOMYCIN 1GM/250ML KIT 250 ML IV ONE (20:30)
[2024-09-30 20:33] LABS: Lactic Acid w/Reflex 2.7 mmol/L (0.4-2.0)
[2024-09-30] MEDS: SODIUM CHLORIDE 0.9% 1,000 ML IV ONE ×3 (21:00)
[2024-10-01] MEDS ORDERED: ONDANSETRON HCL 4 MG/2 ML VIAL IV PRN ×2 (01:30→09:45)
[2024-10-01] MEDS ORDERED: HYDROcodone-ACET 5/325MG TAB PO PRN (01:30)
[2024-10-01] MEDS ORDERED: ACETAMINOPHEN 325 MG TAB PO PRN ×2 (01:30→09:45)
--- NOTE | 2024-10-01 01:32 | DVHHP2 ---
History of Present Illness Reason for Visit: Lower extremity wound History of Present Illness 48-year-old male presents for evaluation Ob wound to his right lower extremity. Patient reports having a chronic wound for the past five years. He states that over the past one-week became worse with increased redness, swelling in mild discharge. Denies fever or chills. No other acute complaints. Past Medical History Seizure (no medication) Past Surgical History Appendectomy Family History Noncontributory Smoke: No ALCOHOL: occassional Drugs: Heroin, Other (Methamphetamine) Lives: Alone Review of Systems Review of Systems Review of systems are currently negative otherwise addressed in HPI. Allergies: Coded Allergies: NO KNOWN ALLERGIES (Unverified , 03/23/24) Exam Vital Signs Vital Signs Date Time Temp Pulse Resp B/P (MAP) Pulse Ox O2 Delivery O2 Flow Rate FiO2 09/30/24 18:14 97.4 84 20 130/83 98 97.4 Exam Gen: 48-year-old male in mild distress Skin: Warm, dry, normal color and texture, no rash. HEENT: Normocephalic atraumatic, mucous membranes moist and pink. Neck: Cervical and supraclavicular nodes normal without enlargement, trachea is midline, thyroid gland is normal without masses. Pulmonary: Clear to auscultation and percussion bilaterally. Cardiac: Regular rate and rhythm. No murmur Abdomen: Soft, nontender, nondistended, bowel sounds present all 4 quadrants, no guarding, no rigidity, no organomegaly. Extremities: No cyanosis, clubbing, right polo with erythema and serous discharge Neuro: Cranial nerves II through XII grossly intact, normal affect and speech, no focal motor deficits. Labs/Xrays Labs Test 09/30/24 21:07 09/30/24 19:23 Range/Units Lactic Acid Level 1.4 0.4-2.0 mmol/L White Blood Count 7.4 4.4-10.8 10^3/uL Red Blood Count 4.54 4.5-5.90 10^6/uL Hemoglobin 15.9 13.5-17.5 g/dL Hematocrit 45.3 41.0-53.0 % Mean Corpuscular Volume 99.8 80.0-100.0 fL Mean Corpuscular Hemoglobin 35.0 H 28.0-32.0 pg Mean Corpuscular Hemoglobin Concent 35.0 32.0-36.0 g/dL Red Cell Distribution Width 12.5 11.8-14.3 % Platelet Count 312 140-450 10^3/uL Mean Platelet Volume 8.1 6.9-10.8 fL Neutrophils (%) (Auto) 57.7 37.0-80.0 % Lymphocytes (%) (Auto) 30.0 10.0-50.0 % Monocytes (%) (Auto) 5.6 0.0-12.0 % Eosinophils (%) (Auto) 5.8 0.0-7.0 % Basophils (%) (Auto) 0.9 0.0-2.0 % Neutrophils # (Auto) 4.3 1.6-8.6 10 ^3/uL Lymphocytes # (Auto) 2.2 0.4-5.4 10 ^3/uL Monocytes # (Auto) 0.4 0-1.3 10 ^3/uL Eosinophils # (Auto) 0.4 0-0.8 10 ^3/uL Basophils # (Auto) 0.1 0-0.2 10 ^3/uL Nucleated Red Blood Cells 0.0 % Sodium Level 142 136-145 mmol/L Potassium Level 3.6 3.5-5.1 mmol/L Chloride Level 108 H 98-107 mmol/L Carbon Dioxide Level 27 20-31 mmol/L Anion Gap 7 5-15 Blood Urea Nitrogen 10 9-23 mg/dL Creatinine 1.07 0.700-1.30 mg/dL Glomerular Filtration Rate Calc 87 >90 mL/min BUN/Creatinine Ratio 9.3 L 10.0-20.0 Serum Glucose 117 H 74-106 mg/dL Calcium Level 9.0 8.7-10.4 mg/dL SEPSIS Sepsis Screen Date sepsis recognized/suspect: Sep 30, 2024 Time Sepsis recognized/suspect: 1815 Recent Procedure: No On Antibiotic Therapy: No Respiratory Rate >20: No Heart Rate >90: No Temp<36 C (96.8 F) or >38.3 C: No SBP <90 or MAP <65 mmHG: No New Acute Mental Status Change: No Is the patient on CPAP, BIPAP,: No Physician Orders Blood Culture (09/30/24 18:53) Wound Culture W/ Gs (09/30/24 18:53) Admit (09/30/24 21:58) Ceftriaxone Ivpb Rocephin (10/01/24 09:00) * Wound Consult (10/01/24 ) Regular Diet (10/01/24 Breakfast) Basic Metabolic Panel (10/01/24 04:00) Complete Blood Count (10/01/24 04:00) Hydrocodone-Acet 5/325mg Tab ([place] 5/32 (10/01/24 01:30) Ondansetron Hcl (Zofran) (10/01/24 01:30) Condition: Stable (10/01/24 01:26) Acetaminophen Tablet (Tylenol Tablet) (10/01/24 01:30) Bedrest With Bathroom Privileg (10/01/24 01:26) Vital Signs Date Time Temp Pulse Resp B/P (MAP) Pulse Ox O2 Delivery O2 Flow Rate FiO2 09/30/24 18:14 97.4 84 20 130/83 98 97.4 Laboratory Tests Test 09/30/24 19:23 09/30/24 21:07 Lactic Acid Level 2.7 mmol/L (0.4-2.0) *H 1.4 mmol/L (0.4-2.0) White Blood Count 7.4 10^3/uL (4.4-10.8) Assessment/Plan Assessment/Plan Assessment Left lower extremity cellulitis Plan Admit the patient to [facility] to the hospitalist Rocephin/clindamycin Wound consult pending Wound culture Pain management Continue treatment per orders. Plan discussed with: Patient My Orders Orders - SILVER SILVA Procedure Category Date Status Time Admit ADMIT 09/30/24 Transmitted 21:58 Ceftriaxone Ivpb PHA 10/01/24 Verified Rocephin 09:00 * Wound Consult CONS 10/01/24 Verified Regular Diet DIET 10/01/24 Verified Breakfast Basic Metabolic Panel LAB 10/01/24 Verified 04:00 Complete Blood Count LAB 10/01/24 Verified 04:00 Hydrocodone-Acet PHA 10/01/24 Verified 5/325mg Tab ([place] 01:30 Ondansetron Hcl PHA 10/01/24 Verified (Zofran) 01:30 Condition: Stable LONA 10/01/24 Verified 01:26 Acetaminophen Tablet PHA 10/01/24 Verified (Tylenol Tablet) 01:30 Bedrest With Bathroom LONA 10/01/24 Verified Privileg 01:26 Date of Service: Sep 30, 2024 Billing Provider: SILVER SILVA Common Visit Codes: [id number] INP/OBS CARE (MOD) SILVER SILVA Oct 01, 2024 01:32
[2024-10-01] MEDS: CLINDAMYCIN 600MG IV 50 ML IV SCH (06:00)
[2024-10-01 07:45] LABS: Sodium 141 mmol/L (136-145)
[2024-10-01 07:46] LABS: Anion Gap 7 (5-15); Calcium 9.0 mg/dL (8.7-10.4); Carbon Dioxide 27 mmol/L (20-31); Hematocrit 45.1 % (41.0-53.0); Hemoglobin 15.9 g/dL (13.5-17.5); Mean Corpuscular Hemoglobin 35.0 pg (28.0-32.0); Mean Corpuscular Volume 99.5 fL (80.0-100.0); Nucleated Red Blood Cells % 0.0 %
[2024-10-01 07:52] LABS: BUN/Creatinine Ratio 7.3 (10.0-20.0); Blood Urea Nitrogen 7 mg/dL (9-23); Chloride 107 mmol/L (98-107); Glucose 98 mg/dL (74-106); Potassium 3.3 mmol/L (3.5-5.1)
[2024-10-01 09:00] VITALS: BP 118/69; PULSE 81; RESP 18; TEMP 97.9; O2SAT 97
[2024-10-01] MEDS ORDERED: cefTRIAXone 1GM/50ML D5W 50 ML IV SCH (09:00)
[2024-10-01] MEDS ORDERED: VANCOMYCIN PER PHARMACY 0 MG IV SCH (09:45)
[2024-10-01] MEDS: VANCOMYCIN 1.25GM/250ML 250 ML IV SCH (11:10)
--- NOTE | 2024-10-01 12:34 | DVHCONRES ---
Date Seen: Oct 01, 2024 Resident Creating Document: MIKE WU Jr., MD Referring Physician ER Reason for Consultation Right leg cellulitis History of Present Illness 48-year-old male presents for evaluation wound to his right lower extremity. Patient reports having a chronic wound for the past five years. He states that over the past one-week became worse with increased redness, swelling in mild discharge. Denies fever or chills. No other acute complaints. Patient currently smokes as well as marijuana and methamphetamine. Past Medical History Seizure disorder Past Surgical History Appendectomy Family History: FH: emphysema G8 MOTHER FH: heart disease G8 MOTHER Social History A smoker methamphetamine use Allergies: Coded Allergies: NO KNOWN ALLERGIES (Unverified , 03/23/24) Current Medications Current Medications Medications (Trade) Dose Ordered Sig/Yaw Route PRN Reason Start Time Stop Time Status Last Admin Ceftriaxone Sodium 50 ml @ 100 mls/hr DAILY@09 IV 10/01/24 09:00 10/01/24 09:36 DC Clindamycin Phosphate 50 ml @ 50 mls/hr Q8HR IV 10/01/24 06:00 10/01/24 09:32 DC Acetaminophen/ Hydrocodone Bitart ([place] 5/325MG Tab) 1 tab Q4HP PRN PO MODERATE PAIN (4-6 PAIN SCALE) 10/01/24 01:30 10/01/24 09:37 DC Ondansetron HCl (Zofran) 4 mg Q4HP PRN IV NAUSEA / VOMITING 10/01/24 01:30 10/01/24 09:37 DC Acetaminophen (Tylenol Tablet) 650 mg Q6HP PRN PO PAIN SCALE 1-3 OR TEMP>100.4 10/01/24 01:30 10/01/24 09:37 DC Vancomycin HCl 0 ml @ 0 mls/hr UD IV 10/01/24 09:45 Ceftriaxone Sodium 50 ml @ 100 mls/hr DAILY@09 IV 10/02/24 09:00 Acetaminophen/ Hydrocodone Bitart ([place] 5/325MG Tab) 1 tab Q4HP PRN PO MODERATE PAIN (4-6 PAIN SCALE) 10/01/24 09:45 Ondansetron HCl (Zofran) 4 mg Q4HP PRN IV NAUSEA / VOMITING 10/01/24 09:45 Acetaminophen (Tylenol Tablet) 650 mg Q6HP PRN PO PAIN SCALE 1-3 OR TEMP>100.4 10/01/24 09:45 Vancomycin HCl 250 ml @ 200 mls/hr Q10H IV 10/01/24 11:00 10/01/24 11:10 Review of Systems Systems reviewed otherwise negative other what is in HPI. Vital Signs Vital Signs Date Time Temp Pulse Resp B/P (MAP) Pulse Ox O2 Delivery O2 Flow Rate FiO2 10/01/24 09:00 97.9 81 18 118/69 (85) 97 97.9 Physical Exam Head eyes ears nose and throat exam eyes are nonicteric conjunctiva is pink neck was supple no JVD no lymphadenopathy no carotid bruits lungs are clear to auscultation heart was regular rate and rhythm abdomen is soft nontender with no pulsatile abdominal mass or bruits lower extremities palpable femoral and pedal pulses bilaterally he has multiple abrasions on his right anterior lateral polo. With some drainage mild cellulitis. No fluctuance noted. Labs/Diagnostic Data Labs Test 10/01/24 07:13 09/30/24 21:07 Range/Units White Blood Count 7.9 4.4-10.8 10^3/uL Red Blood Count 4.53 4.5-5.90 10^6/uL Hemoglobin 15.9 13.5-17.5 g/dL Hematocrit 45.1 41.0-53.0 % Mean Corpuscular Volume 99.5 80.0-100.0 fL Mean Corpuscular Hemoglobin 35.0 H 28.0-32.0 pg Mean Corpuscular Hemoglobin Concent 35.2 32.0-36.0 g/dL Red Cell Distribution Width 12.6 11.8-14.3 % Platelet Count 275 140-450 10^3/uL Mean Platelet Volume 7.8 6.9-10.8 fL Neutrophils (%) (Auto) 67.6 37.0-80.0 % Lymphocytes (%) (Auto) 22.9 10.0-50.0 % Monocytes (%) (Auto) 3.8 0.0-12.0 % Eosinophils (%) (Auto) 5.2 0.0-7.0 % Basophils (%) (Auto) 0.5 0.0-2.0 % Neutrophils # (Auto) 5.4 1.6-8.6 10 ^3/uL Lymphocytes # (Auto) 1.8 0.4-5.4 10 ^3/uL Monocytes # (Auto) 0.3 0-1.3 10 ^3/uL Eosinophils # (Auto) 0.4 0-0.8 10 ^3/uL Basophils # (Auto) 0 0-0.2 10 ^3/uL Nucleated Red Blood Cells 0.0 % Sodium Level 141 136-145 mmol/L Potassium Level 3.3 L 3.5-5.1 mmol/L Chloride Level 107 98-107 mmol/L Carbon Dioxide Level 27 20-31 mmol/L Anion Gap 7 5-15 Blood Urea Nitrogen 7 L 9-23 mg/dL Creatinine 0.96 0.700-1.30 mg/dL Glomerular Filtration Rate Calc 99 >90 mL/min BUN/Creatinine Ratio 7.3 L 10.0-20.0 Serum Glucose 98 74-106 mg/dL Hemoglobin A1c 5.2 <5.7 % A1C Calcium Level 9.0 8.7-10.4 mg/dL Lactic Acid Level 1.4 0.4-2.0 mmol/L Assessment Patient with right leg cellulitis status post abrasion No surgical intervention required. IV antibiotics Plan/Recommendation Patient with right leg cellulitis status post abrasion No surgical intervention required. IV antibiotics Plan discussed with: Patient MIKE WU Jr., MD Oct 01, 2024 12:34
[2024-10-01 13:00] VITALS: BP 116/80; PULSE 83; RESP 18; TEMP 97.7; O2SAT 95
--- NOTE | 2024-10-01 15:18 | DVHPNRES ---
Progress Note Date Seen: Oct 01, 2024 Resident Creating Document: SALVATORE KIM RESIDENT Medical Necessity Reason Pt with a Central, PICC or Fol: No Subjective Review of Systems Patient is a 48-year-old male with prior medical history of epilepsy, to the ED with chief complaints of right leg wound. According to patient he has had a 5 year history of recurrent cellulitis. he states that 1 week ago he tripped over some rocks and landed on cacti experienced onset of itching and burning of the right calf. This was accompanied by increased swelling, redness, fever, chills, and drainage, for which the patient sought medical care. On evaluation in the ED, initial labs show CBC within normal range, chemical panel within normal range, and lactic acid at 2.7. Patient was started on fluids and IV antibiotics and was admitted for further workup and monitoring. Allergies: Lidocaine Surgical: Appendectomy Social: Patient referred marijuana use, he states he has smoked 1 pack every 3 days since he was 15 years old, denies alcohol use. Currently lives with his dad and states he plans on going there after discharge. Patient seen at bedside. Patient is AOx4, currently states he feels unwell, states his right calf hurts, refers the pain is a throbbing and burning sensation currently an 8/10. currently denies fever, nausea, vomiting, further drainage, chest pain, and palpitations. No adverse events overnight. Vitals have been stable. Follow-up labs are within normal range, and lactic acid 1.4. Surgical consult was placed and they state that no surgical intervention is required at this time. Venous duplex and right lower extremity CT have been ordered for further evaluation. IV clindamycin was discontinued and IV vancomycin was initiated. We will continue to monitor. Review of Systems: Constitutional: Denies weight loss, fever and chills. HEENT: Denies changes in vision and hearing. Respiratory: Denies shortness of breath and cough Cardiovascular: Denies chest discomfort or palpitations GI: Denies abdominal distention, abdominal pain, diarrhea : Denies dysuria and urinary frequency. Musculoskeletal: refers itching, burning, and throbbing pain of the right calf Skin: Denies rash and pruritus. Neurological: denies dizziness headache vision or hearing problems Objective vital signs Vital Sign Date Time Temp Pulse Resp B/P (MAP) Pulse Ox O2 Delivery O2 Flow Rate FiO2 10/01/24 13:00 97.7 83 18 116/80 (36) 11 97.7 medications Current Medications Medications Dose Ordered Sig/Yaw Route Start Time Stop Time Status Last Admin Dose Admin Vancomycin HCl 0 ml @ 0 mls/hr UD IV 10/01/24 09:45 Ceftriaxone Sodium 50 ml @ 100 mls/hr DAILY@09 IV 10/02/24 09:00 Acetaminophen/ Hydrocodone Bitart 1 tab Q4HP PRN PO 10/01/24 09:45 Ondansetron HCl 4 mg Q4HP PRN IV 10/01/24 09:45 Acetaminophen 650 mg Q6HP PRN PO 10/01/24 09:45 Vancomycin HCl 250 ml @ 200 mls/hr Q10H IV 10/01/24 11:00 10/01/24 11:10 200 MLS/HR Examination General: The patient alert and oriented in person place and time. Patient following commands HEENT: Normocephalic, atraumatic, normal reactive pupils, EOM intact, pink conjunctiva, pink moist mucous membrane Respiratory/pulmonary: bilateral chest expansion, clear lungs bilaterally, vesicular murmurs present in almost all lung yu, no associated crackles or wheezes. Cardiovascular: Normal RRR, normal S1 and S2 Abdomen: Abdomen nondistended, normal bowel sounds, soft, no pain to palpation in any of the abdominal quadrants, no palpable masses. Extremities: anterior aspect of the calf erythematous, warm to the touch, pain on palpation, with to eschar lesion, there is no peripheral edema present at the lower extremities. Peripheral pulses 3+ radial right, 3+ radials soft. 3+ dorsalis pedis right. 3+ dorsalis pedis left Skin: No rashes or pruritus Neurological: Intact cranial nerves with no focal neurologic deficits laboratory and microbiology Laboratory Tests 10/01/24 07:13 Test 10/01/24 07:13 Range/Units Serum Glucose 98 74-106 mg/dL Problem List/Assessment/Plan Problem List/Assessment/Plan Assessment and Plan: Right leg cellulitis - Ceftriaxone 1 g IV - Vancomycin for pharmacy protocol - Clindamycin IV, discontinued - IV fluids - [place] 5 mg p.o. q.4 hours PRN - acetaminophen 650 mg p.o. q.6 p.r.n. - general surgery: No surgical intervention required at this time History of epilepsy - patient is refusing anti epileptic medication, risks of going without medications have been thoroughly explained, patient states he does not want any medication. Tobacco use - patient has been counseled on the importance of cessation of tobacco use for general health as well as proper healing for over 20 minutes, he has been offered nicotine patches for assistance in quitting, patient states he is not interested in quitting at this moment in time and refused. Marijuana Use -patient has been counseled on importance of cessation of substance use for over 20 minutes. DVT prophylaxis: Not indicated, DEYANIRA [address] Chavez. Goals of care discussed with the patient for over 35 minutes, states he understands and agrees. FULL CODE. Plan discussed with: Patient My Orders My Orders Orders - SALVATORE KIM RESIDENT Procedure Category Date Status Time Urinalysis LAB 10/01/24 Logged 08:18 Ct R Tib Fib Wo CT 10/01/24 Taken Contrast 14:12 Drug Screen LAB 10/01/24 Logged 14:51 Bilat Lower Dvt US 10/01/24 Taken 14:12 Date of Service: Oct 01, 2024 Billing Provider: TIMOTHY CHAVEZ MD Common Visit Codes: [id number] INP/OBS CARE(HIGH) Secondary Visit Codes: [id number] CARE PLAN 30 MINUTES SALVATORE KIM RESIDENT Oct 01, 2024 15:18 TIMOTHY CHAVEZ MD Oct 05, 2024 20:59
--- NOTE | 2024-10-01 16:20 | DVH ---
INDICATION: Cellulitis r/o fluid collection COMPARISON: CT LEFT LOWER EXTREMITY W/O CON on DOS: 05/27/24, CT LOWER EXTREMITY NON JOINT RIGH on DOS: 05/27/24 TECHNIQUE: CT of the right lower extremity was performed without contrast. Volume transverse images w ere obtained and reconstructed in multiple planes using bone and soft tissue algorithms. Radiation Dose Information: CT Dose: CTDI volume is 7.75 mGy. Dose-length product is 461.59 mGy*cm FINDINGS: The alignment is normal. The joint spaces are normal. There is no fracture, dislocation or aggressive osseous lesion. There is no joint effusion. Mild subcutaneous soft-tissue edema and swelling at the ankle and foot. IMPRESSION: Mild subcutaneous soft-tissue edema and swelling of the ankle and foot; possibly cellulitis.
[2024-10-01 17:00] VITALS: BP 115/76; PULSE 75; RESP 18; TEMP 98.5; O2SAT 96
[2024-10-01 19:00] VITALS: BP 110/82; PULSE 79; RESP 17; TEMP 98.2; O2SAT 94
[2024-10-01 20:00] VITALS: PULSE 86; RESP 17; O2SAT 97
[2024-10-01] MEDS: HYDROcodone-ACET 5/325MG TAB PO PRN (20:37)
[2024-10-01 21:00] VITALS: BP 119/88; PULSE 86; RESP 17; TEMP 98.6; O2SAT 97
[2024-10-02] VITALS (7 sets, daily range): BP systolic 100–119; BP diastolic 58–86; PULSE 67–81; RESP 14–17; TEMP 97.5–98.9; O2SAT 95–98
--- NOTE | 2024-10-02 01:30 | DVH ---
CLINICAL HISTORY: Right lower extremity swelling R/O DVT TECHNIQUE: Color and duplex doppler imaging of the bilateral lower extremity veins was performed. Ves larisa compression if possible was also performed. WID: COMPARISON: US BILAT LOW EXT ART DUPLEX on DOS: 05/27/24, US BILAT LOWER DVT on DOS: 05/27/24, CT LOWER E XTREMITY NON JOINT RIGH on DOS: 05/27/24 FINDINGS: Right Lower Extremity: Right common femoral vein: Normal compressibility and flow. Right femoral vein: Normal compressibility and flow. Right popliteal vein: Normal compressibility and flow. Proximal calf veins are normally compressible. Prominent right inguinal lymph nodes likely reactive. Left Lower Extremity: Left common femoral vein: Normal compressibility and flow. Left femoral vein: Normal compressibility and flow. Left popliteal vein: Normal compressibility and flow. Proximal calf veins are normally compressible. IMPRESSION: NO SONOGRAPHIC EVIDENCE FOR DEEP VENOUS THROMBOSIS IN THE BILATERAL LOWER EXTREMITY VEINS.
[2024-10-02 06:39] LABS: Hemoglobin 16.4 g/dL (13.5-17.5); Nucleated Red Blood Cells % 0.1 %
[2024-10-02 06:41] LABS: Hematocrit 46.6 % (41.0-53.0); Mean Corpuscular Hemoglobin 34.5 pg (28.0-32.0); Mean Corpuscular Volume 97.9 fL (80.0-100.0)
[2024-10-02 06:58] LABS: Alanine Aminotransferase 11 U/L (7-40); Albumin 4.2 g/dL (3.2-4.8); Alkaline Phosphatase 91 U/L (46-116); Anion Gap 7 (5-15); BUN/Creatinine Ratio 12.1 (10.0-20.0); Blood Urea Nitrogen 12 mg/dL (9-23); Calcium 9.1 mg/dL (8.7-10.4); Carbon Dioxide 27 mmol/L (20-31); Chloride 107 mmol/L (98-107); Glucose 83 mg/dL (74-106); Potassium 4.1 mmol/L (3.5-5.1); Sodium 141 mmol/L (136-145); Total Protein 6.7 g/dL (5.7-8.2)
[2024-10-02 06:59] LABS: Bilirubin, Total 0.4 mg/dL (0.2-1.0)
[2024-10-02] MEDS: cefTRIAXone 1GM/50ML D5W 50 ML IV SCH (09:56)
--- NOTE | 2024-10-02 14:40 | DVHPNRES ---
Progress Note Date Seen: Oct 02, 2024 Resident Creating Document: SALVATORE KIM RESIDENT Medical Necessity Reason Pt with a Central, PICC or Fol: No Subjective Review of Systems Patient is a 48-year-old male with prior medical history of epilepsy, to the ED with chief complaints of right leg wound. According to patient he has had a 5 year history of recurrent cellulitis. he states that 1 week ago he tripped over some rocks and landed on cacti experienced onset of itching and burning of the right calf. This was accompanied by increased swelling, redness, fever, chills, and drainage, for which the patient sought medical care. On evaluation in the ED, initial labs show CBC within normal range, chemical panel within normal range, and lactic acid at 2.7. Patient was started on fluids and IV antibiotics and was admitted for further workup and monitoring. Patient seen at bedside. He is AOx4, currently states he feels well. Refers that his right calf continues to sting, with the same intensity as yesterday. Additionally states, he has had some bleeding from a wound on his calf. Currently denies fever, nausea, vomiting, purulent drainage from calf, chest pain, and palpitations. No adverse events over night. Vitals have remained stable. Follow up labs are within normal range. Bilateral venous duplex ultrasound shows no evidence of deep vein thrombosis in bilateral lower extremity veins. CT of right lower extremity shows a mild subcutaneous soft tissue edema and swelling of the ankle and foot possibly cellulitis. Surgery as stated that the patient currently does not require surgical intervention should continue on IV antibiotics. We will continue to monitor. Objective vital signs Vital Sign Date Time Temp Pulse Resp B/P (MAP) Pulse Ox O2 Delivery O2 Flow Rate FiO2 10/02/24 08:30 98.9 77 16 119/74 (89) 95 98.9 10/02/24 08:00 Room Air* 0 21 Total Intake and Output 10/01/24 10/01/24 10/02/24 15:00 23:00 07:00 Intake Total 250 ml 950 ml 804 ml Balance 250 ml 950 ml 804 ml medications Current Medications Medications Dose Ordered Sig/Yaw Route Start Time Stop Time Status Last Admin Dose Admin Vancomycin HCl 0 ml @ 0 mls/hr UD IV 10/01/24 09:45 Ceftriaxone Sodium 50 ml @ 100 mls/hr DAILY@09 IV 10/02/24 09:00 10/02/24 09:56 100 MLS/HR Acetaminophen/ Hydrocodone Bitart 1 tab Q4HP PRN PO 10/01/24 09:45 10/02/24 09:56 1 TAB Ondansetron HCl 4 mg Q4HP PRN IV 10/01/24 09:45 Acetaminophen 650 mg Q6HP PRN PO 10/01/24 09:45 Vancomycin HCl 250 ml @ 200 mls/hr Q10H IV 10/01/24 11:00 10/02/24 06:24 200 MLS/HR Examination General: The patient alert and oriented in person place and time. Patient following commands HEENT: Normocephalic, atraumatic, normal reactive pupils, EOM intact, pink conjunctiva, pink moist mucous membrane Respiratory/pulmonary: bilateral chest expansion, clear lungs bilaterally, vesicular murmurs present in almost all lung yu, no associated crackles or wheezes. Cardiovascular: Normal RRR, normal S1 and S2 Abdomen: Abdomen nondistended, normal bowel sounds, soft, no pain to palpation in any of the abdominal quadrants, no palpable masses. Extremities: anterior aspect of the calf erythematous, warm to the touch, pain on palpation, with to eschar lesion presence of dried blood, there is no peripheral edema present at the lower extremities. Peripheral pulses 3+ radial right, 3+ radials soft. 3+ dorsalis pedis right. 3+ dorsalis pedis left Skin: No rashes or pruritus Neurological: Intact cranial nerves with no focal neurologic deficits laboratory and microbiology Laboratory Tests 10/02/24 05:06 Test 10/02/24 05:06 Range/Units Serum Glucose 83 74-106 mg/dL Microbiology Date/Time Source Procedure Growth Status 09/30/24 19:33 Blood Blood Culture - Preliminary NO GROWTH AFTER 24 HOURS OF INCUBATION. Resulted Problem List/Assessment/Plan Problem List/Assessment/Plan Assessment and Plan: Right leg cellulitis - Ceftriaxone 1 g IV - Vancomycin for pharmacy protocol - Clindamycin IV, discontinued - IV fluids - [place] 5 mg p.o. q.4 hours PRN - acetaminophen 650 mg p.o. q.6 p.r.n. - General surgery: No surgical intervention required at this time - Daily wound cleansing Hypokalemia, resolved History of epilepsy - Patient is refusing anti-epileptic medication, risks of going without medications have been thoroughly explained, patient states he does not want any medication. Tobacco use - patient has been counseled on the importance of cessation of tobacco use for general health as well as proper healing for over 20 minutes, he has been offered nicotine patches for assistance in quitting, patient states he is not interested in quitting at this moment in time and refused. DVT prophylaxis: Not indicated, DEYANIRA [address] Chavez. Goals of care discussed with the patient for over 35 minutes, states he understands and agrees. FULL CODE. Plan discussed with: Patient My Orders My Orders Orders - SALVATORE KIM RESIDENT Procedure Category Date Status Time Drug Screen LAB 10/01/24 Logged 14:51 Cleanse Wound With LONA 10/02/24 In Process Wound Clean 10:30 * Dietary Consult CONS 10/02/24 Transmitted 13:21 Date of Service: Oct 02, 2024 Billing Provider: TIMOTHY CHAVEZ MD Common Visit Codes: [id number] INP/OBS CARE(HIGH) SLAVATORE KIM RESIDENT Oct 02, 2024 14:40 TIMOTHY CHAVEZ MD Oct 05, 2024 20:59
[2024-10-03] VITALS (8 sets, daily range): BP systolic 109–121; BP diastolic 68–84; PULSE 68–87; RESP 17–20; TEMP 98.1–99.3; O2SAT 93–98
[2024-10-03 06:09] LABS: Anion Gap 6 (5-15); Carbon Dioxide 29 mmol/L (20-31); Potassium 4.5 mmol/L (3.5-5.1); Sodium 144 mmol/L (136-145)
[2024-10-03 06:10] LABS: Calcium 9.0 mg/dL (8.7-10.4)
[2024-10-03 06:15] LABS: BUN/Creatinine Ratio 11.8 (10.0-20.0); Blood Urea Nitrogen 12 mg/dL (9-23); Glucose 84 mg/dL (74-106)
[2024-10-03 06:21] LABS: Chloride 109 mmol/L (98-107)
[2024-10-03 18:07] LABS: Urine Protein, UAD Negative (Negative)
[2024-10-03 18:13] LABS: Amphetamine Screen, Urine Neg (NEGATIVE)
[2024-10-03 18:14] LABS: Cannabinoid Screen, Urine Pos (NEGATIVE)
[2024-10-03 18:18] LABS: Barbiturate Scree,Urine Neg (NEGATIVE); Benzodiazephine Screen, Urine Neg (NEGATIVE); Cocaine Screen, Urine Neg (NEGATIVE); Opiate Scree,Urine Neg (NEGATIVE); Phencyclidine Screen, Urine Neg (NEGATIVE)
--- NOTE | 2024-10-03 19:03 | DVHPNRES ---
Progress Note Date Seen: Oct 03, 2024 Resident Creating Document: SALVATORE KIM RESIDENT Medical Necessity Reason Pt with a Central, PICC or Fol: No Subjective Review of Systems Patient is a 48-year-old male with prior medical history of epilepsy, to the ED with chief complaints of right leg wound. According to patient he has had a 5 year history of recurrent cellulitis. he states that 1 week ago he tripped over some rocks and landed on cacti experienced onset of itching and burning of the right calf. This was accompanied by increased swelling, redness, fever, chills, and drainage, for which the patient sought medical care. On evaluation in the ED, initial labs show CBC within normal range, chemical panel within normal range, and lactic acid at 2.7. Patient was started on fluids and IV antibiotics and was admitted for further workup and monitoring. Surgical: Appendectomy Social: Patient referred marijuana use, he states he has smoked 1 pack every 3 days since he was 15 years old, denies alcohol use. Currently lives with his dad and states he plans on going there after discharge. Patient seen at bedside. He is AOx4, currently states he feels well, pain has decreased significantly however it does continue to staying, he states he has been able to ambulate around his room with minimal difficulty. Additionally states that the wounds on his right calf are beginning to look better. Currently denies fever, nausea, vomiting, purulent suppuration from wounds on right calf, and other symptoms. No adverse events over night. Vitals have been stable. Follow up labs are within range. He will continue on current management. We will continue to monitor. Objective vital signs Vital Sign Date Time Temp Pulse Resp B/P (MAP) Pulse Ox O2 Delivery O2 Flow Rate FiO2 10/03/24 17:00 98.3 81 17 119/80 (93) 97 98.3 10/03/24 08:25 Room Air* 0 21 Total Intake and Output 10/02/24 10/02/24 10/03/24 15:00 23:00 07:00 Intake Total 760 ml 250 ml 1850 ml Balance 760 ml 250 ml 1850 ml medications Current Medications Medications Dose Ordered Sig/Yaw Route Start Time Stop Time Status Last Admin Dose Admin Vancomycin HCl 0 ml @ 0 mls/hr UD IV 10/01/24 09:45 Ceftriaxone Sodium 50 ml @ 100 mls/hr DAILY@09 IV 10/02/24 09:00 10/03/24 09:16 100 MLS/HR Acetaminophen/ Hydrocodone Bitart 1 tab Q4HP PRN PO 10/01/24 09:45 10/02/24 09:56 1 TAB Ondansetron HCl 4 mg Q4HP PRN IV 10/01/24 09:45 Acetaminophen 650 mg Q6HP PRN PO 10/01/24 09:45 Vancomycin HCl 250 ml @ 200 mls/hr Q10H IV 10/01/24 11:00 10/03/24 13:28 200 MLS/HR Examination General: The patient alert and oriented in person place and time. Patient following commands HEENT: Normocephalic, atraumatic, normal reactive pupils, EOM intact, pink conjunctiva, pink moist mucous membrane Respiratory/pulmonary: bilateral chest expansion, clear lungs bilaterally, vesicular murmurs present in almost all lung yu, no associated crackles or wheezes. Cardiovascular: Normal RRR, normal S1 and S2 Abdomen: Abdomen nondistended, normal bowel sounds, soft, no pain to palpation in any of the abdominal quadrants, no palpable masses. Extremities: anterior aspect of the calf with decreasing erythema, warm to the touch, decreased pain on palpation, with to eschar lesion presence are clean, there is no peripheral edema present at the lower extremities. Peripheral pulses 3+ radial right, 3+ radials soft. 3+ dorsalis pedis right. 3+ dorsalis pedis left Skin: No rashes or pruritus Neurological: Intact cranial nerves with no focal neurologic deficits laboratory and microbiology Laboratory Tests 10/03/24 05:10 10/02/24 05:06 Test 10/03/24 05:10 Range/Units Serum Glucose 84 74-106 mg/dL Microbiology Date/Time Source Procedure Growth Status 09/30/24 19:33 Blood Blood Culture - Preliminary NO GROWTH AFTER 48 HOURS OF INCUBATION. Resulted Problem List/Assessment/Plan Problem List/Assessment/Plan Assessment and Plan: Right leg cellulitis - Ceftriaxone 1 g IV - Vancomycin for pharmacy protocol - Clindamycin IV, discontinued - IV fluids - [place] 5 mg p.o. q.4 hours PRN - acetaminophen 650 mg p.o. q.6 p.r.n. - General surgery: No surgical intervention required at this time - Cleaning an dressing changes with wound care - Blood cultures: preliminary: negative at 48 hours of growth Hypokalemia, resolved History of epilepsy - Patient is refusing anti-epileptic medication, risks of going without medications have been thoroughly explained, patient states he does not want any medication. Tobacco use - patient has been counseled on the importance of cessation of tobacco use for general health as well as proper healing for over 20 minutes, he has been offered nicotine patches for assistance in quitting, patient states he is not interested in quitting at this moment in time and refused. Cannabis use - UDS positive for cannabis - patient has been counseled on the importance of cannabis cessation for over 20 minutes. DVT prophylaxis: Not indicated, DEYANIRA [address] Chavez. Goals of care discussed with the patient for over 40 minutes, states he understands and agrees. FULL CODE. Plan discussed with: Patient Dietary Evaluation Review Comments: Elroy BID Expected Outcomes/Goals: wound to heal Date of Service: Oct 03, 2024 Billing Provider: TIMOTHY CHAVEZ MD Common Visit Codes: [id number] INP/OBS CARE(HIGH) SALVATORE KIM RESIDENT Oct 03, 2024 19:03 TIMOTHY CHAVEZ MD Oct 05, 2024 21:00
[2024-10-04 05:00] VITALS: BP 114/64; PULSE 78; RESP 18; TEMP 98; O2SAT 95
[2024-10-04 08:05] LABS: Hematocrit 44.9 % (41.0-53.0); Hemoglobin 16.0 g/dL (13.5-17.5); Mean Corpuscular Hemoglobin 34.8 pg (28.0-32.0); Mean Corpuscular Volume 97.8 fL (80.0-100.0); Nucleated Red Blood Cells % 0.1 %
[2024-10-04 08:09] LABS: Potassium 4.2 mmol/L (3.5-5.1); Sodium 142 mmol/L (136-145)
[2024-10-04 08:10] LABS: Anion Gap 6 (5-15); Calcium 8.9 mg/dL (8.7-10.4); Carbon Dioxide 27 mmol/L (20-31)
[2024-10-04 08:15] LABS: BUN/Creatinine Ratio 14.6 (10.0-20.0); Blood Urea Nitrogen 15 mg/dL (9-23); Glucose 89 mg/dL (74-106)
[2024-10-04 08:18] LABS: Chloride 109 mmol/L (98-107)
[2024-10-04 09:00] VITALS: BP 108/74; PULSE 77; RESP 16; TEMP 97.2; O2SAT 96
[2024-10-04 13:00] VITALS: BP 117/83; PULSE 71; RESP 17; TEMP 97.5; O2SAT 98
--- NOTE | 2024-10-04 16:39 | PEER ---
Peer to Peer Review Time DATE: 10/04/24 TIME: 16:31 Review and Recommendations: Received call from working for [employer] from number [phone], discussed clinical case including vital signs, medical history, current progressive illness. Informed clinical decision including requiring IV antibiotic given severe right lower extremity cellulitis, fluctuating subcutaneous tissue, evaluation done by surgery, continue requiring IV antibi otic to avoid impending sepsis, avoid limb threatening infection. Dr russo agreeing with current clinical management and patient will need IV antibiotics, Patient stated that he are going to change status from observation to inpatient. Decision Approved for inpatient status By Dr. Russo Addendum Addendum Addendum I was physically present for the casey portions of the service provided to patient by THE RESIDENT. I have reviewed the documentation, discussed the case with resident and agree with the resident's documentation except as noted. Also the patient's clinical case was discussed with the patient's nurse. This medical document was created using an electronic medical record system with computerized dictation system. Although this document has been carefully reviewed, there might still be some phonetic and typographical errors. These areas are purely typographical due to imperfections of the software programs, and do not reflect any compromise in the patient's medical care. Late signature. Date of Service: Oct 04, 2024 Billing Provider: JOSH RUSH MD Common Visit Codes: NOT BILLABLE TRANG [place] RESIDENT Oct 04, 2024 16:39 JOSH RUSH MD Oct 07, 2024 05:14
[2024-10-04 17:00] VITALS: BP 118/83; PULSE 76; RESP 18; TEMP 98.5; O2SAT 96
[2024-10-04 19:30] VITALS: PULSE 77; RESP 17; O2SAT 97
[2024-10-04 20:53] VITALS: BP 118/84; PULSE 82; RESP 18; TEMP 98; O2SAT 96
[2024-10-05 05:00] VITALS: BP 107/77; PULSE 69; RESP 17; TEMP 97.6; O2SAT 96
--- NOTE | 2024-10-05 06:30 | DVHPNRES ---
Progress Note Date Seen: Oct 04, 2024 (Late entry by the resident) Resident Creating Document: SALVATORE KIM RESIDENT Medical Necessity Reason Pt with a Central, PICC or Fol: No Subjective Review of Systems Patient is a 48-year-old male with prior medical history of epilepsy, to the ED with chief complaints of right leg wound. According to patient he has had a 5 year history of recurrent cellulitis. he states that 1 week ago he tripped over some rocks and landed on cacti experienced onset of itching and burning of the right calf. This was accompanied by increased swelling, redness, fever, chills, and drainage, for which the patient sought medical care. On evaluation in the ED, initial labs show CBC within normal range, chemical panel within normal range, and lactic acid at 2.7. Patient was started on fluids and IV antibiotics and was admitted for further workup and monitoring. Surgical: Appendectomy Social: Patient referred marijuana use, he states he has smoked 1 pack every 3 days since he was 15 years old, denies alcohol use. Currently lives with his dad and states he plans on going there after discharge. Patient seen at bedside on October 04, 2024. He is AO x4,, states he feels well, right calf continues to sting, he has been able to ambulate around the room with some difficulty. Currently denies fever, nausea, vomiting, purulent suppuration from wounds on right calf, and other symptoms. No adverse events over night. Vitals are stable. Follow up labs are within range. Patient continues to require IV antibiotics given severity of right lower extremity cellulitis to avoid impending sepsis and avoid limb threatening infection. We will continue to follow. Objective vital signs Vital Sign Date Time Temp Pulse Resp B/P (MAP) Pulse Ox O2 Delivery O2 Flow Rate FiO2 10/05/24 05:00 97.6 69 17 107/77 (87) 96 97.6 10/04/24 19:30 Room Air* 0 21 Total Intake and Output 10/04/24 10/04/24 10/05/24 15:00 23:00 07:00 Intake Total 300 ml 1520 ml 860 ml Balance 300 ml 1520 ml 860 ml medications Current Medications Medications Dose Ordered Sig/Yaw Route Start Time Stop Time Status Last Admin Dose Admin Vancomycin HCl 0 ml @ 0 mls/hr UD IV 10/01/24 09:45 Ceftriaxone Sodium 50 ml @ 100 mls/hr DAILY@09 IV 10/02/24 09:00 10/04/24 08:44 100 MLS/HR Acetaminophen/ Hydrocodone Bitart 1 tab Q4HP PRN PO 10/01/24 09:45 10/02/24 09:56 1 TAB Ondansetron HCl 4 mg Q4HP PRN IV 10/01/24 09:45 Acetaminophen 650 mg Q6HP PRN PO 10/01/24 09:45 Vancomycin HCl 250 ml @ 200 mls/hr Q10H IV 10/01/24 11:00 10/05/24 04:20 200 MLS/HR Examination General: The patient alert and oriented in person place and time. Patient following commands HEENT: Normocephalic, atraumatic, normal reactive pupils, EOM intact, pink conjunctiva, pink moist mucous membrane Respiratory/pulmonary: bilateral chest expansion, clear lungs bilaterally, vesicular murmurs present in almost all lung yu, no associated crackles or wheezes. Cardiovascular: Normal RRR, normal S1 and S2 Abdomen: Abdomen nondistended, normal bowel sounds, soft, no pain to palpation in any of the abdominal quadrants, no palpable masses. Extremities: anterior aspect of the calf with decreasing erythema, warm to the touch, decreased pain on palpation, with to eschar lesion presence are clean, there is no peripheral edema present at the lower extremities. Peripheral pulses 3+ radial right, 3+ radials soft. 3+ dorsalis pedis right. 3+ dorsalis pedis left Skin: No rashes or pruritus Neurological: Intact cranial nerves with no focal neurologic deficits laboratory and microbiology Laboratory Tests 10/04/24 06:53 Test 10/04/24 06:53 Range/Units Serum Glucose 89 74-106 mg/dL Microbiology Date/Time Source Procedure Growth Status 09/30/24 19:33 Blood Blood Culture - Preliminary NO GROWTH AFTER 72 HOURS OF INCUBATION. Resulted Labs and/or images reviewed: Labs reviewed by me, Image(s) reviewed by me Problem List/Assessment/Plan Problem List/Assessment/Plan Assessment and Plan: Suspected sepsis with leukocytosis due to right leg cellulitis - Ceftriaxone 1 g IV - Vancomycin for pharmacy protocol - Clindamycin IV, discontinued - IV fluids - [place] 5 mg p.o. q.4 hours PRN - acetaminophen 650 mg p.o. q.6 p.r.n. - General surgery: No surgical intervention required at this time - Cleaning an dressing changes with wound care - Blood cultures: preliminary: negative at 72 hours of growth Hypokalemia, resolved History of epilepsy - Patient is refusing anti-epileptic medication, risks of going without medications have been thoroughly explained, patient states he does not want any medication. Tobacco use - patient has been counseled on the importance of cessation of tobacco use for general health as well as proper healing for 16 minutes, he has been offered nicotine patches for assistance in quitting, patient states he is not interested in quitting at this moment in time and refused. Cannabis use - UDS positive for cannabis - patient has been counseled on the importance of cannabis cessation for 12 minutes. No indication for DVT or GI prophylaxis Case discussed with Dr. Millan Goals of care discussed with the patient for 20 minutes, FULL CODE. Plan discussed with: Patient, Other (RN) Dietary Evaluation Review Comments: Elroy BID Expected Outcomes/Goals: wound to heal Date of Service: Oct 04, 2024 Billing Provider: JOSH MILLAN MD Common Visit Codes: [id number] INP/OBS CARE(HIGH) Secondary Visit Codes: [id number] CHNG SMOKING >10MIN (16 minutes for tobacco use cessation and 12 minutes for marijuana use cessation), [id number] CARE PLAN 30 MINUTES (20 minutes) SALVATORE KIM RESIDENT Oct 05, 2024 06:30 JOSH MILLAN MD Oct 07, 2024 05:12
[2024-10-05 06:40] LABS: Hematocrit 46.1 % (41.0-53.0); Hemoglobin 16.3 g/dL (13.5-17.5); Mean Corpuscular Hemoglobin 34.8 pg (28.0-32.0); Mean Corpuscular Volume 98.5 fL (80.0-100.0); Nucleated Red Blood Cells % 0.0 %
[2024-10-05 09:01] VITALS: BP 117/74; PULSE 74; RESP 18; TEMP 95.1; O2SAT 97
[2024-10-05 13:00] VITALS: BP 117/73; PULSE 81; RESP 20; TEMP 98.9; O2SAT 96
[2024-10-05] MEDS: CLOTRIMAZOLE 1 % CREAM 15GM TOP SCH (14:45)
--- NOTE | 2024-10-05 14:59 | DVHPNRES ---
Progress Note Date Seen: Oct 05, 2024 Resident Creating Document: SALVATORE KIM RESIDENT Medical Necessity Reason Pt with a Central, PICC or Fol: No Subjective Review of Systems Patient is a 48-year-old male with prior medical history of epilepsy, to the ED with chief complaints of right leg wound. According to patient he has had a 5 year history of recurrent cellulitis. he states that 1 week ago he tripped over some rocks and landed on cacti experienced onset of itching and burning of the right calf. This was accompanied by increased swelling, redness, fever, chills, and drainage, for which the patient sought medical care. On evaluation in the ED, initial labs show CBC within normal range, chemical panel within normal range, and lactic acid at 2.7. Patient was started on fluids and IV antibiotics and was admitted for further workup and monitoring. Surgical: Appendectomy Social: Patient referred marijuana use, he states he has smoked 1 pack every 3 days since he was 15 years old, denies alcohol use. Currently lives with his dad and states he plans on going there after discharge. Patient seen at bedside. He is AO x4, states he feels well, refers that the pain in his right calf is improving, states that the stinging associated to when he tries to walk with gauze on his leg. currently denies fever, nausea, vomiting, purulent information from wounds on right calf, and other symptoms. No adverse events overnight. Vitals are stable. Follow up labs were within range. Due to suspicion of possible fungal superimposition, we will be adding topical clotrimazole to his regimen. Continue on IV antibiotics to avoid impending sepsis and avoid limb threatening infection. We will continue to follow. Objective vital signs Vital Sign Date Time Temp Pulse Resp B/P (MAP) Pulse Ox O2 Delivery O2 Flow Rate FiO2 10/05/24 13:00 98.9 81 20 117/73 (88) 96 98.9 10/05/24 08:00 Room Air* 0 21 Total Intake and Output 10/04/24 10/04/24 10/05/24 15:00 23:00 07:00 Intake Total 300 ml 1520 ml 860 ml Balance 300 ml 1520 ml 860 ml medications Current Medications Medications Dose Ordered Sig/Yaw Route Start Time Stop Time Status Last Admin Dose Admin Vancomycin HCl 0 ml @ 0 mls/hr UD IV 10/01/24 09:45 Ceftriaxone Sodium 50 ml @ 100 mls/hr DAILY@09 IV 10/02/24 09:00 10/05/24 09:14 100 MLS/HR Acetaminophen/ Hydrocodone Bitart 1 tab Q4HP PRN PO 10/01/24 09:45 10/02/24 09:56 1 TAB Ondansetron HCl 4 mg Q4HP PRN IV 10/01/24 09:45 Acetaminophen 650 mg Q6HP PRN PO 10/01/24 09:45 Vancomycin HCl 250 ml @ 200 mls/hr Q10H IV 10/01/24 11:00 10/05/24 04:20 200 MLS/HR Clotrimazole 1 applic Q12HR TOP 10/05/24 14:45 UNV Examination General: The patient alert and oriented in person place and time. Patient following commands HEENT: Normocephalic, atraumatic, normal reactive pupils, EOM intact, pink conjunctiva, pink moist mucous membrane Respiratory/pulmonary: bilateral chest expansion, clear lungs bilaterally, vesicular murmurs present in almost all lung yu, no associated crackles or wheezes. Cardiovascular: Normal RRR, normal S1 and S2 Abdomen: Abdomen nondistended, normal bowel sounds, soft, no pain to palpation in any of the abdominal quadrants, no palpable masses. Extremities: anterior aspect of the calf with decreasing erythema, warm to the touch, decreased pain on palpation, with to eschar lesion presence are clean, there is no peripheral edema present at the lower extremities, Pulse are palpable Skin: No rashes or pruritus Neurological: Intact cranial nerves with no focal neurologic deficits laboratory and microbiology Laboratory Tests 10/05/24 05:23 10/04/24 06:53 Test 10/04/24 06:53 Range/Units Serum Glucose 89 74-106 mg/dL Microbiology Date/Time Source Procedure Growth Status 09/30/24 19:33 Blood Blood Culture - Preliminary NO GROWTH AFTER 72 HOURS OF INCUBATION. Resulted Problem List/Assessment/Plan Problem List/Assessment/Plan Assessment and Plan: Right leg cellulitis - Ceftriaxone 1 g IV - Vancomycin for pharmacy protocol - Clindamycin IV, discontinued - IV fluids - [place] 5 mg p.o. q.4 hours PRN - acetaminophen 650 mg p.o. q.6 p.r.n. - General surgery: No surgical intervention required at this time - Cleaning an dressing changes with wound care - Clotrimazole topical application once q12 hrs - Blood cultures: preliminary: negative at 72 hours of growth Hypokalemia, resolved History of epilepsy - Patient is refusing anti-epileptic medication, risks of going without medications have been thoroughly explained, patient states he does not want any medication. Tobacco use - patient has been counseled on the importance of cessation of tobacco use for general health as well as proper healing for over 20 minutes, he has been offered nicotine patches for assistance in quitting, patient states he is not interested in quitting at this moment in time and refused. Cannabis use - UDS positive for cannabis - patient has been counseled on the importance of cannabis cessation for over 20 minutes. DVT prophylaxis: Not indicated, DEYANIRA [address] Mays. Goals of care discussed with the patient for over 30 minutes, states he understands and agrees. FULL CODE. Plan discussed with: Patient My Orders My Orders Orders - SALVATORE KIM RESIDENT Procedure Category Date Status Time Clotrimazole 1% PHA 10/05/24 Logged Topical Cream 14:45 Dietary Evaluation Review Comments: [place] BID Expected Outcomes/Goals: wound to heal Date of Service: Oct 05, 2024 Billing Provider: ZORAIDA MAYS MD Common Visit Codes: [id number] INP/OBS CARE(HIGH) SALVATORE KIM RESIDENT Oct 05, 2024 14:59 ZORAIDA MAYS MD Oct 09, 2024 22:51
[2024-10-05 17:18] VITALS: BP 121/79; PULSE 95; RESP 18; TEMP 99.6; O2SAT 95
[2024-10-05 21:00] VITALS: BP 120/79; PULSE 92; RESP 18; TEMP 98.8; O2SAT 96
[2024-10-06 05:00] VITALS: BP 114/75; PULSE 71; RESP 18; TEMP 97.6; O2SAT 94
[2024-10-06 07:21] LABS: Hematocrit 45.6 % (41.0-53.0); Hemoglobin 16.3 g/dL (13.5-17.5); Mean Corpuscular Hemoglobin 35.5 pg (28.0-32.0); Mean Corpuscular Volume 99.1 fL (80.0-100.0); Nucleated Red Blood Cells % 0.1 %
[2024-10-06 09:17] VITALS: TEMP 98; O2SAT 97
--- NOTE | 2024-10-06 10:47 | DVHPNRES ---
Progress Note Date Seen: Oct 06, 2024 Resident Creating Document: JUAN WHEELER Medical Necessity Reason Pt with a Central, PICC or Fol: No Subjective Review of Systems Patient is a 48-year-old male with prior medical history of epilepsy, to the ED with chief complaints of right leg wound. According to patient he has had a 5 year history of recurrent cellulitis. he states that 1 week ago he tripped over some rocks and landed on cacti experienced onset of itching and burning of the right calf. This was accompanied by increased swelling, redness, fever, chills, and drainage, for which the patient sought medical care. On evaluation in the ED, initial labs show CBC within normal range, chemical panel within normal range, and lactic acid at 2.7. Patient was started on fluids and IV antibiotics and was admitted for further workup and monitoring. Surgical: Appendectomy Social: Patient referred marijuana use, he states he has smoked 1 pack every 3 days since he was 15 years old, denies alcohol use. Currently lives with his dad and states he plans on going there after discharge. Patient seen at bedside. He is AO x4, states he feels well, refers that the pain in his right calf is improving, states that the stinging associated to when he tries to walk with gauze on his leg. currently denies fever, nausea, vomiting, purulent information from wounds on right calf, and other symptoms. No adverse events overnight. Vitals are stable. Follow up labs were within range. Due to suspicion of possible fungal superimposition, we will be adding topical clotrimazole to his regimen. Continue on IV antibiotics to avoid impending sepsis and avoid limb threatening infection. We will continue to follow. Patient seen at bedside. Patient reports both leg pain rated 3/10 and lower back pain rated 8/10. Patient reports no new complains. All medications and recommendations were thoroughly explained and the patient states he understands. Vancomycin through returned at 12.2 today. Per pharmacist, it is safe to continue the scheduled vancomycin dose today and should not be held. Objective vital signs Vital Sign Date Time Temp Pulse Resp B/P (MAP) Pulse Ox O2 Delivery O2 Flow Rate FiO2 10/06/24 09:17 98.0 97 98.0 10/06/24 08:00 Room Air* 0 21 10/06/24 05:00 71 18 114/75 (88) Total Intake and Output 8/16/25 8/16/25 8/17/25 15:00 23:00 07:00 Intake Total 530 ml 1250 ml 850 ml Output Total 1 ml 1 ml Balance 530 ml 1249 ml 849 ml medications Current Medications Medications Dose Ordered Sig/Yaw Route Start Time Stop Time Status Last Admin Dose Admin Vancomycin HCl 0 ml @ 0 mls/hr UD IV 10/01/24 09:45 Ceftriaxone Sodium 50 ml @ 100 mls/hr DAILY@09 IV 10/02/24 09:00 10/06/24 08:54 100 MLS/HR Acetaminophen/ Hydrocodone Bitart 1 tab Q4HP PRN PO 10/01/24 09:45 10/02/24 09:56 1 TAB Ondansetron HCl 4 mg Q4HP PRN IV 10/01/24 09:45 Acetaminophen 650 mg Q6HP PRN PO 10/01/24 09:45 Clotrimazole 1 applic Q12HR TOP 10/05/24 14:45 10/06/24 10:23 1 APPLIC Examination General: The patient alert and oriented in person place and time. Patient following commands HEENT: Normocephalic, atraumatic, normal reactive pupils, EOM intact, pink conjunctiva, pink moist mucous membrane Respiratory/pulmonary: bilateral chest expansion, clear lungs bilaterally, vesicular murmurs present in almost all lung yu, no associated crackles or wheezes. Cardiovascular: Normal RRR, normal S1 and S2 Abdomen: Abdomen nondistended, normal bowel sounds, soft, no pain to palpation in any of the abdominal quadrants, no palpable masses. Extremities: anterior aspect of the calf with decreasing erythema, warm to the touch, decreased pain on palpation, with to eschar lesion presence are clean, there is no peripheral edema present at the lower extremities, Pulse are palpable Skin: No rashes or pruritus Neurological: Intact cranial nerves with no focal neurologic deficits laboratory and microbiology Laboratory Tests 10/06/24 05:49 10/04/24 06:53 Test 10/04/24 06:53 Range/Units Serum Glucose 89 74-106 mg/dL Microbiology Date/Time Source Procedure Growth Status 09/30/24 19:33 Blood Blood Culture - Final NO GROWTH AFTER 5 DAYS OF INCUBATION. Complete Labs and/or images reviewed: Labs reviewed by me, Image(s) reviewed by me Problem List/Assessment/Plan Problem List/Assessment/Plan Right leg cellulitis - Ceftriaxone 1 g IV - Vancomycin for pharmacy protocol - Clindamycin IV, discontinued - IV fluids - [place] 5 mg p.o. q.4 hours PRN - acetaminophen 650 mg p.o. q.6 p.r.n. - General surgery: No surgical intervention required at this time - Cleaning an dressing changes with wound care - Clotrimazole topical application once q12 hrs - Blood cultures: preliminary: negative at 72 hours of growth Hypokalemia, resolved History of epilepsy - Patient is refusing anti-epileptic medication, risks of going without medications have been thoroughly explained, patient states he does not want any medication. Tobacco use - patient has been counseled on the importance of cessation of tobacco use for general health as well as proper healing for over 20 minutes, he has been offered nicotine patches for assistance in quitting, patient states he is not interested in quitting at this moment in time and refused. Cannabis use - UDS positive for cannabis - patient has been counseled on the importance of cannabis cessation for over 20 minutes. DVT prophylaxis: Not indicated, DEYANIRA [address] Mohan. Goals of care discussed with the patient for over 30 minutes, states he understands and agrees. FULL CODE. Plan discussed with: Patient Dietary Evaluation Review Comments: [place] BID Expected Outcomes/Goals: wound to heal Date of Service: Oct 06, 2024 Billing Provider: ZORAIDA MOHAN MD Common Visit Codes: [id number] INP/OBS CARE(HIGH) JUAN WHEELER RESIDENT Oct 06, 2024 10:46 ZORAIDA MOHAN MD Oct 09, 2024 22:53
[2024-10-06] MEDS: VANCOMYCIN 1.25GM/250ML 250 ML IV SCH (11:34)
[2024-10-06 13:00] VITALS: BP 119/85; PULSE 85; RESP 20; TEMP 98.9; O2SAT 96
[2024-10-06 17:00] VITALS: BP 109/66; PULSE 89; RESP 18; TEMP 98.6; O2SAT 95
[2024-10-06 21:00] VITALS: BP 99/54; PULSE 92; RESP 18; TEMP 97.5; O2SAT 92
[2024-10-06] MEDS: MELATONIN 5 MG TAB PO ONE (22:09)
[2024-10-07 04:38] VITALS: BP 117/71; PULSE 67; RESP 18; TEMP 97.5; O2SAT 96
[2024-10-07 08:30] VITALS: BP 161/114; PULSE 72; RESP 18; TEMP 97.5; O2SAT 95
[2024-10-07 08:49] LABS: Hemoglobin 16.9 g/dL (13.5-17.5); Mean Corpuscular Volume 98.5 fL (80.0-100.0)
[2024-10-07 08:51] LABS: Hematocrit 48.2 % (41.0-53.0); Mean Corpuscular Hemoglobin 34.5 pg (28.0-32.0); Nucleated Red Blood Cells % 0.1 %
[2024-10-07 09:00] LABS: Anion Gap 7 (5-15); Carbon Dioxide 29 mmol/L (20-31); Chloride 105 mmol/L (98-107); Potassium 4.1 mmol/L (3.5-5.1); Sodium 141 mmol/L (136-145)
[2024-10-07 09:01] LABS: Calcium 9.3 mg/dL (8.7-10.4)
[2024-10-07 09:06] LABS: BUN/Creatinine Ratio 14.6 (10.0-20.0); Blood Urea Nitrogen 13 mg/dL (9-23); Glucose 101 mg/dL (74-106)
[2024-10-07 12:30] VITALS: BP 108/68; PULSE 75; RESP 16; TEMP 97; O2SAT 96
--- NOTE | 2024-10-07 17:11 | DVHPNRES ---
Progress Note Date Seen: Oct 07, 2024 Resident Creating Document: SALVATORE KIM RESIDENT Medical Necessity Reason Pt with a Central, PICC or Fol: No Subjective Review of Systems Patient is a 48-year-old male with prior medical history of epilepsy, to the ED with chief complaints of right leg wound. According to patient he has had a 5 year history of recurrent cellulitis. he states that 1 week ago he tripped over some rocks and landed on cacti experienced onset of itching and burning of the right calf. This was accompanied by increased swelling, redness, fever, chills, and drainage, for which the patient sought medical care. On evaluation in the ED, initial labs show CBC within normal range, chemical panel within normal range, and lactic acid at 2.7. Patient was started on fluids and IV antibiotics and was admitted for further workup and monitoring. Surgical: Appendectomy Social: Patient referred marijuana use, he states he has smoked 1 pack every 3 days since he was 15 years old, denies alcohol use. Currently lives with his dad and states he plans on going there after discharge. Patient seen at bedside. He is AOx4, states he feels well, refers that the pain and redness in his leg have improved, and has been able to walk with limited difficulty. Continues to deny fever, nausea, vomiting, purulent suppuration from on right calf, and other symptoms. No adverse events overnight. Vitals have remained stable. Labs are within normal range. We have discontinued IV antibiotics, and we start the patient on p.o. Bactrim. We will continue to monitor, possible discharge tomorrow. Objective vital signs Vital Sign Date Time Temp Pulse Resp B/P (MAP) Pulse Ox O2 Delivery O2 Flow Rate FiO2 10/07/24 16:52 10/07/24 12:30 97.0 75 16 96 97.0 10/07/24 08:05 Room Air* 0 21 Total Intake and Output 10/06/24 10/06/24 10/07/24 15:00 23:00 07:00 Intake Total 1100 ml 570 ml 800 ml Output Total 0 ml 1 ml Balance 1100 ml 569 ml 800 ml medications Current Medications Medications Dose Ordered Sig/Yaw Route Start Time Stop Time Status Last Admin Dose Admin Acetaminophen/ Hydrocodone Bitart 1 tab Q4HP PRN PO 10/01/24 09:45 10/02/24 09:56 1 TAB Ondansetron HCl 4 mg Q4HP PRN IV 10/01/24 09:45 Acetaminophen 650 mg Q6HP PRN PO 10/01/24 09:45 Clotrimazole 1 applic Q12HR TOP 10/05/24 14:45 10/07/24 15:44 1 APPLIC Trimethoprim/ Sulfamethoxazole 2 tab Q12HR PO 10/07/24 22:00 Examination General: The patient alert and oriented in person place and time. Patient following commands HEENT: Normocephalic, atraumatic, normal reactive pupils, EOM intact, pink conjunctiva, pink moist mucous membrane Respiratory/pulmonary: bilateral chest expansion, clear lungs bilaterally, vesicular murmurs present in almost all lung yu, no associated crackles or wheezes. Cardiovascular: Normal RRR, normal S1 and S2 Abdomen: Abdomen nondistended, normal bowel sounds, soft, no pain to palpation in any of the abdominal quadrants, no palpable masses. Extremities: anterior aspect of the calf with decreasing erythema, no longer warm to the touch, decreased pain on palpation, eschar lesions are clean, dry, and without signs of suppuration or bleeding, there is no peripheral edema present at the lower extremities, Pulse are palpable Skin: No rashes or pruritus Neurological: Intact cranial nerves with no focal neurologic deficits laboratory and microbiology Laboratory Tests 10/07/24 07:47 Test 10/07/24 07:47 Range/Units Serum Glucose 101 74-106 mg/dL Microbiology Date/Time Source Procedure Growth Status 09/30/24 19:33 Blood Blood Culture - Final NO GROWTH AFTER 5 DAYS OF INCUBATION. Complete Problem List/Assessment/Plan Problem List/Assessment/Plan Assessment and Plan: Right leg cellulitis - Ceftriaxone 1 g IV, discontinued - Vancomycin for pharmacy protocol, discontinued - Clindamycin IV, discontinued - Bactrim PO 2 tablets q12 hours for 10 days - IV fluids, discontinued - [place] 5 mg p.o. q.4 hours PRN - Acetaminophen 650 mg p.o. q.6 p.r.n. - General surgery: No surgical intervention required at this time - Cleaning an dressing changes with wound care - Clotrimazole topical application once q12 hrs - Blood cultures: No growth after 5 days of incubation Hypokalemia, resolved History of epilepsy - Patient is refusing anti-epileptic medication, risks of going without medications have been thoroughly explained, patient states he does not want any medication. Tobacco use - patient has been counseled on the importance of cessation of tobacco use for general health as well as proper healing for over 10 minutes, he has been offered nicotine patches for assistance in quitting, patient states he is not interested in quitting at this moment in time and refused. Cannabis use - UDS positive for cannabis - patient has been counseled on the importance of cannabis cessation for over 10 minutes. DVT prophylaxis: Not indicated, EDYANIRA 0 GI prophylaxis: Not indicated Case discussed with Dr. Chavez. Goals of care discussed with the patient for over 25 minutes, states he understands and agrees. FULL CODE. Plan discussed with: Patient My Orders My Orders Orders - SALVATORE KIM RESIDENT Procedure Category Date Status Time Sulfamethoxazole PHA 10/07/24 In Process W/Trimeth Tab (Bactrim 22:00 Dietary Evaluation Review Comments: [place] BID Expected Outcomes/Goals: wound to heal Date of Service: Oct 07, 2024 Billing Provider: TIMOTHY CHAVEZ MD Common Visit Codes: [id number] INP/OBS CARE(HIGH) SALVATORE KIM Oct 07, 2024 17:10 TIMOTHY CHAVEZ MD Oct 08, 2024 19:17
[2024-10-07 21:00] VITALS: BP 125/69; PULSE 94; RESP 20; TEMP 97.7; O2SAT 98
[2024-10-07] MEDS: SULFAMETHOX W/TRIMETH(800/160MG) DS TAB PO SCH (22:19)
[2024-10-08 01:00] VITALS: BP 116/71; PULSE 72; RESP 18; TEMP 97.5; O2SAT 95
[2024-10-08 05:00] VITALS: BP 93/62; PULSE 74; RESP 18; TEMP 98; O2SAT 98
[2024-10-08 06:10] LABS: Calcium 9.1 mg/dL (8.7-10.4); Chloride 106 mmol/L (98-107); Potassium 4.3 mmol/L (3.5-5.1); Sodium 140 mmol/L (136-145)
[2024-10-08 06:11] LABS: Anion Gap 7 (5-15); Carbon Dioxide 27 mmol/L (20-31); Hematocrit 46.1 % (41.0-53.0); Hemoglobin 16.3 g/dL (13.5-17.5); Mean Corpuscular Hemoglobin 35.2 pg (28.0-32.0); Mean Corpuscular Volume 99.7 fL (80.0-100.0); Nucleated Red Blood Cells % 0.1 %
[2024-10-08 06:16] LABS: BUN/Creatinine Ratio 15.0 (10.0-20.0); Blood Urea Nitrogen 15 mg/dL (9-23); Glucose 91 mg/dL (74-106)
[2024-10-08 08:40] VITALS: BP 123/71; PULSE 71; RESP 18; TEMP 96.9; O2SAT 95
[2024-10-08] MEDS ORDERED: BACDST PO (11:16)
[2024-10-08 12:37] VITALS: BP 117/82; PULSE 86; RESP 17; TEMP 97.9; O2SAT 96
--- NOTE | 2024-10-08 14:57 | DVHDSRES ---
Discharge Summary Date of Admission Resident Creating Document: SALVATORE KIM RESIDENT Sep 30, 2024 at 21:58 Date of Discharge: Oct 08, 2024 Admitting Diagnosis Cellulitis Wounds: Multiple dry scabs and to open ulcerations measuring 1 x 1 cm no measurable depth Labs/Diagnostic Data: Laboratory Results Test 10/08/24 05:17 10/06/24 05:49 10/03/24 17:00 10/02/24 05:06 White Blood Count 6.7 10^3/uL (4.4-10.8) Red Blood Count 4.63 10^6/uL (4.5-5.90) Hemoglobin 16.3 g/dL (13.5-17.5) Hematocrit 46.1 % (41.0-53.0) Mean Corpuscular Volume 99.7 fL (80.0-100.0) Mean Corpuscular Hemoglobin 35.2 pg (28.0-32.0) Mean Corpuscular Hemoglobin Concent 35.3 g/dL (32.0-36.0) Red Cell Distribution Width 12.4 % (11.8-14.3) Platelet Count 241 10^3/uL (140-450) Mean Platelet Volume 8.4 fL (6.9-10.8) Neutrophils (%) (Auto) 50.2 % (37.0-80.0) Lymphocytes (%) (Auto) 33.7 % (10.0-50.0) Monocytes (%) (Auto) 8.8 % (0.0-12.0) Eosinophils (%) (Auto) 6.2 % (0.0-7.0) Basophils (%) (Auto) 1.1 % (0.0-2.0) Neutrophils # (Auto) 3.4 10 ^3/uL (1.6-8.6) Lymphocytes # (Auto) 2.3 10 ^3/uL (0.4-5.4) Monocytes # (Auto) 0.6 10 ^3/uL (0-1.3) Eosinophils # (Auto) 0.4 10 ^3/uL (0-0.8) Basophils # (Auto) 0.1 10 ^3/uL (0-0.2) Nucleated Red Blood Cells 0.1 % Sodium Level 140 mmol/L (136-145) Potassium Level 4.3 mmol/L (3.5-5.1) Chloride Level 106 mmol/L (98-107) Carbon Dioxide Level 27 mmol/L (20-31) Anion Gap 7 (5-15) Blood Urea Nitrogen 15 mg/dL (9-23) Creatinine 1.00 mg/dL (0.700-1.30) Glomerular Filtration Rate Calc 94 mL/min (>90) BUN/Creatinine Ratio 15.0 (10.0-20.0) Serum Glucose 91 mg/dL (74-106) Calcium Level 9.1 mg/dL (8.7-10.4) Vancomycin Level Trough 21.0 ug/mL (5-10) Urine Color Light-yellow (Yellow) Urine Clarity Clear (Clear) Urine pH 7.0 (5.0-9.0) Urine Specific [place] 1.016 (1.001-1.035) Urine Protein Negative (Negative) Urine Ketones Negative (Negative) Urine Blood Negative /uL (Negative) Urine Nitrite Negative (Negative) Urine Bilirubin Negative (Negative) Urine Urobilinogen Normal mg/dL (Negative) Urine Leukocyte Esterase Negative /uL (Negative) Urine RBC 2 /hpf (0 - 3) Urine Microscopic WBC < 1 /HPF (0-3) Urine Squamous Epithelial Cells None seen /hpf (<5) Urine Bacteria None seen /hpf (None Seen) Urine Glucose Normal mg/dL (Normal) Urine Opiates Screen Neg (NEGATIVE) Urine Fentanyl Screen Neg (NEGATIVE) Urine Barbiturates Screen Neg (NEGATIVE) Urine Phencyclidine Screen Neg (NEGATIVE) Urine Amphetamines Screen Neg (NEGATIVE) Urine Benzodiazepines Screen Neg (NEGATIVE) Urine Cocaine Screen Neg (NEGATIVE) Urine Cannabinoids Screen Pos (NEGATIVE) Total Bilirubin 0.4 mg/dL (0.2-1.0) Aspartate Amino Transferase (AST) 16 U/L (13-40) Alanine Aminotransferase (ALT) 11 U/L (7-40) Alkaline Phosphatase 91 U/L (46-116) Total Protein 6.7 g/dL (5.7-8.2) Albumin 4.2 g/dL (3.2-4.8) Test 10/01/24 07:13 09/30/24 21:07 Hemoglobin A1c 5.2 % A1C (<5.7) Lactic Acid Level 1.4 mmol/L (0.4-2.0) Other Laboratory Tests 10/08/24 05:17 Brief Hx & Hospital Course: Patient is a 48-year-old male with prior medical history of epilepsy, to the ED with chief complaints of right leg wound. According to patient he has had a 5 year history of recurrent cellulitis. he states that 1 week ago he tripped over some rocks and landed on cacti experienced onset of itching and burning of the right calf. This was accompanied by increased swelling, redness, fever, chills, and drainage, for which the patient sought medical care. On evaluation in the ED, initial labs show CBC within normal range, chemical panel within normal range, and lactic acid at 2.7. UDS was positive for cannabis. Patient was started on fluids and IV antibiotics and was admitted for further workup and monitoring. On admission, follow up labs showed normalization of lactic acid. In order to rule out possible DVT, venous duplex of bilateral lower extremities was ordered which ruled out DVT. CT of right lower extremity shows a mild subcutaneous soft tissue edema and swelling of the ankle and foot possibly cellulitis. The patient was evaluated by surgery who stated that there was no surgical intervention required at this time and that the patient should continue on IV antibiotics. IV antibiotics were adjusted, clindamycin was discontinued and vancomycin was initiated. Additionally, topical clotrimazole was started to cover for possible fungal superinfection. Wound Care was consulted for treatment of this area, recommended wound dressing changes. The patient completed days 6 days of IV ceftriaxone and vancomycin, was started on p.o. Bactrim in preparation for discharge. He has progressed favorably. On evaluation today, the patient states he feels better, redness and pain and right calf has significantly improved, he has been able to sleep, ambulate without difficulty, and tolerate oral diet. Vitals have been stable. Follow up labs are within normal range. He is considered stable for discharge home with oral Bactrim to complete antibiotic therapy at home. Recommendations have been given for proper care and cleansing further right calf. He is recommended to follow up with his PCP within 1 week for continued follow up. On recommendations and medications have been thoroughly explained to the patient. He states he understands and agrees. Personal history: Epilepsy Surgical: Appendectomy Social: Patient referred marijuana use, he states he has smoked 1 pack every 3 days since he was 15 years old, denies alcohol use. Currently lives with his dad and states he plans on going there after discharge. Physical Exam: General: The patient appears comfortable, alert and oriented in person place and time. Patient following commands HEENT: Normocephalic, atraumatic, normal reactive pupils, EOM intact, pink conjunctiva, pink moist mucous membrane Respiratory/pulmonary: bilateral chest expansion, clear lungs bilaterally, vesicular murmurs present in almost all lung yu, no associated crackles or wheezes. Cardiovascular: Normal RRR, normal S1 and S2 Abdomen: Abdomen nondistended, normal bowel sounds, soft, no pain to palpation in any of the abdominal quadrants, no palpable masses. Extremities: anterior aspect of the calf with decreasing erythema, no longer warm to the touch, decreased pain on palpation, eschar lesions are clean, dry, and without signs of suppuration or bleeding, there is no peripheral edema present at the lower extremities, Pulse are palpable Skin: No rashes or pruritus Neurological: Intact cranial nerves with no focal neurologic deficits Case discussed with Dr. Chavez Goals of care discussed with the patient for 25 minutes. He states he understands and agrees. Consults/Reason for consult General surgery was consulted due to suspicions of possible abscess, surgery states that there was no intervention required at this time. Care was consulted for evaluation of wounds on his right calf, they recommended wound dressing changes. Operations or Procedures CLINICAL HISTORY: Right lower extremity swelling R/O DVT TECHNIQUE: Color and duplex doppler imaging of the bilateral lower extremity veins was performed. Vessel compression if possible was also performed. WID: COMPARISON: US BILAT LOW EXT ART DUPLEX on DOS: 05/27/24, US BILAT LOWER DVT on DOS: 05/27/24, CT LOWER EXTREMITY NON JOINT RIGH on DOS: 05/27/24 FINDINGS: Right Lower Extremity: Right common femoral vein: Normal compressibility and flow. Right femoral vein: Normal compressibility and flow. Right popliteal vein: Normal compressibility and flow. Proximal calf veins are normally compressible. Prominent right inguinal lymph nodes likely reactive. Left Lower Extremity: Left common femoral vein: Normal compressibility and flow. Left femoral vein: Normal compressibility and flow. Left popliteal vein: Normal compressibility and flow. Proximal calf veins are normally compressible. IMPRESSION: NO SONOGRAPHIC EVIDENCE FOR DEEP VENOUS THROMBOSIS IN THE BILATERAL LOWER EXTREMITY VEINS. INDICATION: Cellulitis r/o fluid collection COMPARISON: CT LEFT LOWER EXTREMITY W/O CON on DOS: 05/27/24, CT LOWER EXTREMITY NON JOINT RIGH on DOS: 05/27/24 TECHNIQUE: CT of the right lower extremity was performed without contrast. Volume transverse images were obtained and reconstructed in multiple planes using bone and soft tissue algorithms. Radiation Dose Information: CT Dose: CTDI volume is 7.75 mGy. Dose-length product is 461.59 mGy*cm FINDINGS: The alignment is normal. The joint spaces are normal. There is no fracture, dislocation or aggressive osseous lesion. There is no joint effusion. Mild subcutaneous soft-tissue edema and swelling at the ankle and foot. IMPRESSION: Mild subcutaneous soft-tissue edema and swelling of the ankle and foot; possibly cellulitis. Condition at Discharge: Stable Final Diagnosis/Problems List Right leg cellulitis Lactic acidosis due to above Hypokalemia, resolved History of epilepsy Tobacco use Cannabis use Discharge Disposition: Home Discharge Instruct/Medications Diet: Regular Activity: No Restrictions, As Tolerated Follow Up/Referral: Follow-up with PCP in 1-2 weeks Medications: Bactrim 2 tablets p.o. every 12 hours Scheduled Sulfamethoxazole W/Trimethopri (Bactrim Ds Tablet), 2 TAB PO BID Discharge Statement: "Patient was advised to return to the ER or call 911 if any headaches, dizziness, shortness of breath, chest pain, abdominal pain, bleeding, fevers, or worsening of medical condition. Patient was counseled about treatment plan, medications, possible side effects, patientverbalized understanding. All questions were answered to the best of my ability. This discharge took greater then 30 minutes in planning, reviewing documentation, counseling the patient, and discussing with other team members." ASSESSMENT ASSESSMENT Assessment Cellulitis of the right calf Date of Service: Oct 08, 2024 Billing Provider: TIMOTHY CHAVEZ MD Common Visit Codes: [id number] DISCH DAY >30min SALVATORE KIM RESIDENT Oct 08, 2024 14:57 TIMOTHY CHAVEZ MD Oct 08, 2024 19:18
== END 2024-10-08 13:35 | disposition home or self-care (01) | DRG 383 ==
LOC: ER 18:16 → OVERFLOW 21:58 → UNDODISIN 22:47 → CENTRAL 10-01 18:04
PROVIDERS: ADMIT Internal Medicine Geriatric Medicine; ATTEND Internal Medicine Geriatric Medicine
DX: L03.115 Cellulitis of right lower limb (principal); E87.20 Acidosis, unspecified; L03.116 Cellulitis of left lower limb; E87.6 Hypokalemia; F17.210 Nicotine dependence, cigarettes, uncomplicated; G40.909 Epilepsy, unspecified, not intractable, without status epilepticus; Z79.899 Other long term (current) drug therapy; Z82.49 Family history of ischemic heart disease and other diseases of the circulatory system; Z83.6 Family history of other diseases of the respiratory system
CPT/HCPCS: 36415; 73700; 80048; 80053; 80202; 80307; 81001; 82565; 83036; 83605; 85025; 87040; 93970; G0378